=== PATIENT | female | born 1960 | race Caucasian/White ===

== ENCOUNTER 2019-11-17 17:01 | Outpatient (CLI) | payer OTHER, SELFPAY ==
--- NOTE | ~2019-11-17 | CT_ITS ---
EXAMINATION: CT abdomen pelvis wo con DATE: 11/17/2019 17:40 INDICATION: Diverticulitis TECHNIQUE: Computed tomography (CT) of the abdomen and pelvis was performed without intravenous contr ast. Automated exposure control and iterative reconstruction technique were employed. The dose-length product was 665.14 mGy-cm. COMPARISON: 11/08/2016 FINDINGS: Lung bases are clear. Heart size is normal. No pericardial or pleural effusion. Small sliding-type hi atal hernia. Diffuse hepatic steatosis. Cholecystectomy clips the gallbladder fossa. Spleen, pancreas , bilateral adrenal glands and kidneys are normal. Moderate scattered colonic diverticulosis without adjacent inflammatory change to suggest diverticulitis. Small bowel is normal. The appendix is not vi sualized. No pericecal inflammatory change to suggest acute appendicitis. Bladder is normal. The uter us is not identified and has likely been surgically resected. No free intraperitoneal gas or fluid. N o pathologically enlarged abdominal or pelvic lymphadenopathy. 6.4 x 5.6 x 2.5 cm fat-containing supr aumbilical ventral hernia which extends through a 6 x 11 mm orifice. Likely section scar ext ending transversely across the anterior pelvis. Mild lumbar levoscoliosis with severe spondylosis. Mi ld right-sided and mild to moderate left-sided hip osteoarthritis. IMPRESSION: 1. Moderate diverticulosis without adjacent inflammatory change to suggest diverticulitis. 2. Fat-containing ventral hernia. 3. Diffuse hepatic steatosis. Reviewed, dictated and finalized at location A. K PILER IMPRESSION: 1. Moderate diverticulosis without adjacent inflammatory change to suggest dive rticulitis. 2. Fat-containing ventral hernia. 3. Diffuse hepatic steatosis.
== END 2019-11-17 17:02 | disposition home or self-care (01) ==
PROVIDERS: PCP Family Medicine; Visit Provider Family Medicine
DX: K57.92 Diverticulitis of intestine, part unspecified, without perforation or abscess without bleeding (principal); K43.9 Ventral hernia without obstruction or gangrene; K76.0 Fatty (change of) liver, not elsewhere classified
CPT/HCPCS: 74176

== ENCOUNTER 2022-12-03 13:08 | Outpatient (CLI) | payer OTHER, SELFPAY ==
--- NOTE | ~2022-12-03 | CT_ITS ---
EXAMINATION: CT abdomen pelvis w con DATE: 12/03/2022 14:52 INDICATION: Periumbilical abdominal pain. Low abdominal adhesions. TECHNIQUE: Computed tomography (CT) of the abdomen and pelvis was performed with 100 mL Omnipaque 350 intravenous contrast. Automated exposure control and iterative reconstruction technique were employe d. The dose-length product was 549.41 mGy-cm. COMPARISON: CT abdomen and pelvis 02/15/2020 FINDINGS: The visualized portions of the lung bases demonstrate mild atelectasis. No pleural effusion . The heart size is normal. No pericardial effusion. There is a 4 mm cyst in the liver. There are aylin nges of cholecystectomy. The spleen, pancreas, adrenal glands, and kidneys are normal. There are scat tered diverticula in the colon. There is fat stranding around a sigmoid diverticulum with local bowel wall thickening, consistent with diverticulitis. The appendix is not visualized. There is a supraumb ilical ventral hernia containing fat. There are no pathologically enlarged lymph nodes. There is no f ree intraperitoneal fluid. There is lumbar levoscoliosis and severe spondylosis. IMPRESSION: 1. Sigmoid diverticulitis. No perforation or abscess. 2. Supraumbilical ventral hernia containing fat. Reviewed, dictated and finalized at location A.
[2022-12-03 14:46] LABS: Estimated Glomerular Filt Rate > 60
== END 2022-12-03 13:09 | disposition home or self-care (01) ==
PROVIDERS: PCP Family Medicine; Visit Provider Family Medicine
DX: K57.32 Diverticulitis of large intestine without perforation or abscess without bleeding (principal); K43.9 Ventral hernia without obstruction or gangrene; K57.90 Diverticulosis of intestine, part unspecified, without perforation or abscess without bleeding; K66.0 Peritoneal adhesions (postprocedural) (postinfection)
CPT/HCPCS: 74177; Q9967

== ENCOUNTER 2023-11-06 21:57 | Emergency (ER) | payer OTHER, SELFPAY ==
--- NOTE | ~2023-11-06 | XR_ITS ---
EXAMINATION: XR chest 2V DATE: 11/06/2023 22:18 INDICATION: Chest pain TECHNIQUE: PA and lateral views of the chest were obtained. COMPARISON: Chest radiograph dated 08/03/2018 FINDINGS: The lungs remain clear with no focal airspace opacities, pulmonary edema, pleural effusion or pneumot horax. The cardiomediastinal silhouette is normal. Instrumented lower cervical anterior spinal fusion . Moderate to severe thoracic spondylosis. Cholecystectomy clips in the right upper quadrant. IMPRESSION: 1. No acute cardiopulmonary disease. Reviewed, dictated and finalized at location A. VALVE MECH[employer]IC
--- NOTE | ~2023-11-06 | CT_ITS ---
Clinical Indication: Chest pain, back pain CT Scan of the Chest, Abdomen, and Pelvis with Contrast: Technique: Contiguous sections were acquired throughout the chest, abdomen, and pelvis after intraven ous administration of 100 cc of Omnipaque 350. Dose reduction technique was used on this scan by aguila burkett automated exposure control and iterative reconstruction technique. The dose-length product (DL P) was 720.02 mGy-cm. COMPARISON: 12/03/2022 Findings: There is no evidence of any significant mediastinal, hilar or axillary lymphadenopathy. The mediastin al soft tissues appear normal. No pulmonary embolus. No aortic aneurysm or dissection. There is no evidence of pleural or pericardial effusion. The lungs are clear. No pulmonary nodules or infiltrates are noted. Probable diffuse fatty infiltration of liver. Gallbladder absent. The spleen, pancreas, adrenals and kidneys are within normal limits. No evidence of aortic aneurysm. No lymphadenopathy. No bowel obstruction or bowel wall thickening. There is no evidence to suggest acute appendicitis. Sm all upper ventral fat-containing hernia present. Urinary bladder is unremarkable. No pelvic mass seen. No ascites. Impression: No acute abnormality. Diffuse fatty infiltration of liver. Small upper ventral fat-containing hernia. Reviewed, dictated and finalized at [facility]. [employer] Impression: No acute abnormality. Diffuse fatty infiltration of liver. Small upper ventral fat-containing hernia.
--- NOTE | 2023-11-06 21:59 | ECG_ITS ---
Measurements Intervals [place] Rate: 76 P: 55 MS: 156 QRS: 41 QRSD: 85 T: 43 QT: 369 QTc: 415 Interpretive Statements SINUS RHYTHM NO PREVIOUS ECG AVAILABLE FOR COMPARISON Electronically Signed On 11-07-2023 12:37:30 [employer] END [employer]PER by Kenneth An M.D.
[2023-11-06 22:07] VITALS: BP 186/92; PULSE 80; RESP 15; TEMP 37.1; O2SAT 100
[2023-11-06 22:10] VITALS: O2SAT 100
[2023-11-06] MEDS: ASPIRIN 81 MG CHEWABLE TABLET 324 MG PO (22:10)
[2023-11-06 22:11] VITALS: PULSE 78
[2023-11-06 22:16] LABS: Basophils Absolute Auto 0.1 K/mm3 (0.0-0.1); Basophils Percent Auto 0.6 % (0.2-1.2); Eosinophils Absolute Auto 0.2 K/mm3 (0-0.3); Hematocrit 41.8 % (37.0-47.0); Hemoglobin 13.8 g/dL (12.0-15.0); Immature Granulocyte Absolute 0.03 K/mm3 (0.00-0.031); Immature Granulocyte Percent A 0.3 % (0-0.5); Lymphocytes Absolute Auto 3.58 K/mm3 (0.9-3.2); Lymphocytes Percent Auto 36.7 % (18.3-44.2); Mean Corpuscular Hemoglobin 31.7 pg (26-34); Mean Corpuscular Volume 96.1 fl (80-100); Mean Platelet Volume 9.8 fl (7.4-10.4); Monocytes Absolute Auto 0.7 K/mm3 (0.1-0.6); Monocytes Percent Auto 7.4 % (2.6-8.5); Neutrophils Absolute Auto 5.2 K/mm3 (1.3-6.7); Platelet Count Result 369 k/mm3 (150-375); Red Blood Count 4.35 M/mm3 (4.2-5.4); Red Cell Distribution Width 12.1 % (11.5-14.5); White Blood Count 9.8 K/mm3 (4.5-10.0)
[2023-11-06 22:22] VITALS: BP 166/77; PULSE 73; RESP 18; O2SAT 100
[2023-11-06 22:26] LABS: INR 0.9; Partial Thromboplastin Time 25.8 SECONDS (22.3-36.8); Prothrombin Time 12.4 Seconds (11.1-14.7)
[2023-11-06 22:30] LABS: Alanine Aminotransferase 16 U/L (6-35); Albumin Level 4.4 g/dL (3.5-5.1); Alkaline Phosphatase 93 U/L (38-126); Anion Gap 9 mmol/L (8-16); Aspartate Amino Transferase 25 U/L (14-36); Bilirubin,Total 0.5 mg/dL (0.2-1.3); Blood Urea Nitrogen 15 mg/dL (7-17); Calcium 9.5 mg/dL (8.4-10.2); Carbon Dioxide 28 mmol/L (22-30); Chloride 102 mmol/L (98-107); Estimated CRCL calculation 65 ml/min; Estimated Glomerular Filt Rate > 60; Glucose 104 mg/dL (65-110); Lipase 208 U/L (23-300); Potassium 3.7 mmol/L (3.4-5.0); Sodium 139 mmol/L (137-145)
[2023-11-06 22:32] VITALS: BP 137/73; PULSE 76; RESP 16; O2SAT 99
[2023-11-06 22:41] LABS: Troponin I < 0.012 ng/mL (0.000-0.034)
--- NOTE | 2023-11-06 23:03 | ED.CHESTPAIN ---
HPI - Chest Pain General Chief Complaint: Chest Pain Stated Complaint: chest pain Time Seen by Provider: 11/06/23 22:22 Source: patient Limitations: no limitations History of Present Illness HPI narrative: Patient is a 63-year-old female presents to the emergency department complaining of chest pain. Patient states the pain started approximately 35 minutes prior to arrival in the emergency department, woke her from sleep, present in the center of her chest and so he feels in the posterior aspect of her chest and seems to be radiating out addition to her left shoulder blade region, states the pain is constant, describes it as a pressure, denies any she has pain in the past, has not noticed any making it better or worse including exertion, has not tried anything for the pain. Patient is to history of high blood pressure. Patient denies history of diabetes, smoking, cholesterol abnormalities. Patient admits to family history of early heart disease less than 65 years old. Patient admits to some mild nasal congestion over the past couple days. Patient denies shortness of breath. Patient denies nausea, vomiting, diarrhea, melena, hematochezia, urinary discomfort, recent injuries, recent illness, history of blood clots, unilateral lower extremity swelling, numbness, weakness, fever. Patient admits to a slight nonproductive cough. Related Data Home Medications Medication Instructions Recorded Confirmed pantoprazole 20 mg tablet,delayed 40 mg PO QAM 10/05/19 08/27/23 release Allergies Allergy/AdvReac Type Severity Reaction Status Date / Time cat dander Allergy Unknown Asthma Verified 11/06/23 22:11 Review of Systems Review of Systems: A 10 system review of systems was completed on the patient and is negative except for what is stated in the HPI. Nursing and ancillary documentation was reviewed. [facility] Past Medical History Medical History BPPV (benign paroxysmal positional vertigo) Diverticulosis IBS (irritable bowel syndrome) Lower abdominal adhesions Tubular adenoma of colon Ventral hernia Surgical History Surgical History H/O abdominoplasty H/O of rectopexy H/O ventral hernia repair History of lumbar discectomy Hx of cholecystectomy S/P cervical discectomy C5-6/C6-7 S/P left colectomy Family History Family History Mother Family history of liver disease Family history of malignant neoplasm of stomach Family history of primary malignant neoplasm of liver Sibling Family history of diabetes mellitus in first degree relative Diabetes mellitus Family history of cardiovascular disease Family history of malignant neoplasm of uterus Father Family history of heart disease in male family member before age 55 Acute myocardial infarction Diabetes mellitus Family history of cardiovascular disease Other Family history of allergic disorder Family history of thyroid disease Hypertension Social History Social History Smoking status: Never smoker Alcohol intake: current Lack of Transportation: No Lack of Food: Never True Current Housing: I Have Housing Concerned About Future Housing: No Difficulty Paying Gas/Electric Bills: No Difficulty Paying for Meds: No Currently Unemployed: No Education: Master's Degree or Higher Difficulty w/ Childcare or Family Care: No Comments At time of signature, I have reviewed and agree with nursing past medical, surgical, social and family history unless otherwise noted. Please see the nursing chart for further information. There is no relevant family history pertinent to the presenting complaint. Exam Narrative: CONST: No acute distress. Well nourished. HENMT: Head is normocephalic and atraumatic. Moist mucous membranes.
[2023-11-06] MEDS: ACETAMINOPHEN 500 MG TABLET 1000 MG PO (23:10)
[2023-11-06 23:23] LABS: D Dimer 0.67 ug/mL (<0.48)
[2023-11-06 23:47] VITALS: BP 133/77; PULSE 68; RESP 18; O2SAT 100
[2023-11-06 23:51] LABS: Influenza A QL RT-PCR Negative (Negative); Influenza B QL RT-PCR Negative (Negative); RSV RNA, RT-PCR Negative (Negative); SARS-CoV-2 RNA PCR Negative (Negative)
[2023-11-07] MEDS: MORPHINE SULFATE (*CRX) 4 MG/ML INJ IV PUSH (00:01)
[2023-11-07] MEDS: FAMOTIDINE 20 MG/2 ML VIAL IV PUSH (00:02)
[2023-11-07 00:08] VITALS: BP 148/75; PULSE 78; RESP 13; O2SAT 98
[2023-11-07 00:32] VITALS: BP 125/61; PULSE 63; RESP 12; O2SAT 97
[2023-11-07 01:33] LABS: Troponin I < 0.012 ng/mL (0.000-0.034)
[2023-11-07 03:27] VITALS: BP 121/86; PULSE 65; RESP 14; O2SAT 100
[2023-11-07 04:50] LABS: Troponin I < 0.012 ng/mL (0.000-0.034)
[2023-11-07 06:00] VITALS: BP 107/57; PULSE 62; RESP 14; O2SAT 99
== END 2023-11-07 06:03 | disposition home or self-care (01) ==
PROVIDERS: Emergency Provider Student in an Organized Health Care Education/Training Program; PCP Family Medicine
DX: R07.9 Chest pain, unspecified (principal); Z20.822 Contact with and (suspected) exposure to COVID-19
CPT/HCPCS: 36415; 71046; 71275; 74174; 80053; 83690; 84484; 85025; 85380; 85610; 85730; 87637; 93005; 96374; 96375; 99284; A9270; J2270; Q9967

== ENCOUNTER 2024-03-11 12:46 | Outpatient (CLI) | payer OTHER, SELFPAY ==
--- NOTE | ~2024-03-11 | MR_ITS ---
EXAMINATION: MR lumbar spine wo con DATE: 03/11/2024 13:25 INDICATION: Spinal stenosis, lumbar region with neurogenic claudication. TECHNIQUE: Magnetic resonance imaging (MRI) of the lumbar spine was performed without intravenous con trast. Sequences included sagittal T2-weighted FSE, sagittal T2-weighted FS FSE, sagittal T1-weighted FSE, and axial T2-weighted FSE. COMPARISON: Lumbar spine MRI 06/05/2008 FINDINGS: There is 18 degrees levoscoliosis of lumbar spine. There is 3 mm retrolisthesis of L2 on L3 and L3 on L4 and 4 mm retrolisthesis of L5 on S1. Vertebral body heights are normal. There is mildly decreased disc height at L1-L2 and severely decreased disc height from L2-L3 through L5-S1. The foll owing disc levels are specifically discussed: L1-L2: The disc is bulging and has an annular fissure. There is severe bilateral facet joint osteoart hritis. There is mild bilateral neural foraminal stenosis. There is mild central canal stenosis. L2-L3: The disc is bulging. There is severe bilateral facet joint osteoarthritis. There is moderate r ight and mild left neural foraminal stenosis. There is mild central canal stenosis. L3-L4: The disc is bulging and has an annular fissure. There is severe bilateral facet joint osteoart hritis. There is moderate right and mild left neural foraminal stenosis. There is mild central canal stenosis. L4-L5: The disc is bulging and has an annular fissure. There is severe bilateral facet joint osteoart hritis. There is moderate right and severe left neural foraminal stenosis. There is mild central ashley l stenosis. L5-S1: The disc is bulging and has an annular fissure. There is severe bilateral facet joint osteoart hritis. There is moderate bilateral neural foraminal stenosis. There is mild central canal stenosis. There is posterior decompression. IMPRESSION: 1. Severe lumbar spondylosis. 2. Lumbar levoscoliosis. Reviewed, dictated and finalized at location A.
== END 2024-03-11 12:47 ==
LOC: GOSHIMG 12:47
PROVIDERS: PCP Family Medicine; Visit Provider Nurse Practitioner Family
DX: M48.062 Spinal stenosis, lumbar region with neurogenic claudication (principal); M43.06 Spondylolysis, lumbar region; M41.86 Other forms of scoliosis, lumbar region
CPT/HCPCS: 72148

== ENCOUNTER 2024-04-22 08:45 | Outpatient (RCR) | payer OTHER, SELFPAY ==
--- NOTE | 2024-03-13 14:52 | OPREHPOC ---
Outpatient Therapy Plan of Care This is a Multidisciplinary Plan of Care that may contain components documented by all disciplines (PT, OT, and ST.) PT Problem 1 PT Problem #1 Knowledge Deficit PT Goal 1 Goal [place] with HEP Target Visit 4 PT Problem 2 PT Problem #2 Pain PT Goal 1 Goal Patient will report improved ability to sleep for 6+ hours without increased pain Target Visit 8 PT Problem 3 PT Problem #3 Impaired Flexibility PT Goal 1 Goal Demonstrate 40 degrees of kristin hip abduction to reduce abnormal pelvic pull and hip guarding Target Visit 8 PT Goal 2 Goal Demonstrate -15 degrees or better kristin hamstring restriction for reduced posterior chain pull with activity Target Visit 8 PT Goal 1 Goal Improve kristin hip abduction strength to 4+/5 to improve pelvic stability with ADLs Target Visit 8
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
--- NOTE | 2024-04-07 09:00 | OPREHPOC ---
Outpatient Therapy Plan of Care This is a Multidisciplinary Plan of Care that may contain components documented by all disciplines (PT, OT, and ST.) PT Problem 1 PT Problem #1 Knowledge Deficit PT Goal 1 Goal [place] with HEP Target Visit 4 Progress Met PT Problem 2 PT Problem #2 Pain PT Goal 1 Goal Patient will report improved ability to sleep for 6+ hours without increased pain Target Visit 13 Progress Partially Met PT Problem 3 PT Problem #3 Impaired Flexibility PT Goal 1 Goal Demonstrate 40 degrees of kristin hip abduction to reduce abnormal pelvic pull and hip guarding Target Visit 8 Progress Met PT Goal 2 Goal Demonstrate -15 degrees or better kristin hamstring restriction for reduced posterior chain pull with activity Target Visit 8 Progress Met PT Goal 1 Goal Improve kristin hip abduction strength to 4+/5 to improve pelvic stability with ADLs Target Visit 13 Progress Partially Met
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
--- NOTE | 2024-04-24 10:15 | PCPTNOTE ---
Patient called to cancel due to having too much going on.
--- NOTE | 2024-04-28 12:40 | PCPTNOTE ---
Patient called & cancelled scheduled appointment this date due to not feeling well.
--- NOTE | 2024-05-01 09:10 | PCPTNOTE ---
Patient did not show up for scheduled appointment this date.
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
== END 2024-05-05 09:21 | disposition home or self-care (01) ==
LOC: ANHGOSHPT 08:45
PROVIDERS: PCP Family Medicine; Visit Provider Family Medicine
DX: S86.912A Strain of unspecified muscle(s) and tendon(s) at lower leg level, left leg, initial encounter (principal); V89.2XXA Person injured in unspecified motor-vehicle accident, traffic, initial encounter
CPT/HCPCS: 97014; 97110; 97140; 97161; 97530; G0283

== ENCOUNTER 2024-05-25 11:55 | Emergency (ER) | payer OTHER, SELFPAY ==
[2024-05-25] VITALS (10 sets, daily range): BP systolic 118–158; BP diastolic 67–80; PULSE 54–87; RESP 13–20; TEMP 36.6; O2SAT 98–100
--- NOTE | ~2024-05-25 | XR_ITS ---
Clinical Indication: Dizziness PA and lateral views of the chest: Comparison: 11/06/2023 Findings: The lungs are clear, without evidence of focal consolidation or pleural effusion. Cardiome diastinal silhouette is within normal limits. Bones and soft tissues are unremarkable. Impression: Normal chest. Reviewed, dictated and finalized at location . Impression: Normal chest.
--- NOTE | ~2024-05-25 | CT_ITS ---
EXAMINATION: CT brain wo con DATE: 05/25/2024 14:31 INDICATION: Headache and dizziness TECHNIQUE: Computed tomography (CT) of the head was performed without intravenous contrast. Sagittal and coronal reconstructions were performed. The mA was adjusted according to patient size. Iterative reconstruction technique was employed. The dose-length product was 681.00 mGy-cm. COMPARISON: None FINDINGS: No acute intracranial hemorrhage, acute infarction or abnormal extra axial fluid collection. Symmetri c mild increased prominence of the sulci consistent with minimal age-appropriate diffuse cerebral vol ume loss. Ventricles are normal and symmetric. No mass/mass effect. The orbits, paranasal sinuses and mastoid air cells are normal. IMPRESSION: 1. Normal aging brain. No acute intracranial process. Reviewed, dictated and finalized at location A.
--- NOTE | 2024-05-25 12:10 | ECG_ITS ---
Test Date: 2024-05-25 12:16:48 Measurements Intervals [place] Rate: 67 P: 65 LA: 148 QRS: 28 QRSD: 88 T: 31 QT: 384 QTc: 405 Interpretive Statements SINUS RHYTHM EARLY PRECORDIAL R/S TRANSITION BASELINE ARTIFACT- I, II, III, AVR, AVL, AVF BORDERLINE ECG No previous ECG available for comparison Electronically Signed On 05-25-2024 17:45:03 CDT by Willard Xiong D.O.
[2024-05-25 12:40] LABS: Basophils Percent Auto 0.4 % (0.2-1.2); Eosinophils Absolute Auto 0.2 K/mm3 (0-0.3); Hematocrit 43.5 % (37.0-47.0); Hemoglobin 14.6 g/dL (12.0-15.0); Immature Granulocyte Absolute 0.03 K/mm3 (0.00-0.031); Immature Granulocyte Percent A 0.4 % (0-0.5); Lymphocytes Absolute Auto 2.58 K/mm3 (0.9-3.2); Lymphocytes Percent Auto 30.1 % (18.3-44.2); Mean Corpuscular HGB Conc 33.6 g/dl (32-36); Mean Corpuscular Volume 98.4 fl (80-100); Mean Platelet Volume 9.6 fl (7.4-10.4); Monocytes Absolute Auto 0.7 K/mm3 (0.1-0.6); Monocytes Percent Auto 8.3 % (2.6-8.5); Neutrophils Absolute Auto 5.1 K/mm3 (1.3-6.7); Neutrophils Percent Auto 58.8 % (45.5-73.1); Platelet Count Result 348 k/mm3 (150-375); Red Blood Count 4.42 M/mm3 (4.2-5.4); White Blood Count 8.6 K/mm3 (4.5-10.0)
[2024-05-25 12:51] LABS: Alanine Aminotransferase 19 U/L (6-35); Albumin Level 4.4 g/dL (3.5-5.1); Alkaline Phosphatase 72 U/L (38-126); Anion Gap 10 mmol/L (4-12); Aspartate Amino Transferase 21 U/L (14-36); Bilirubin,Total 0.7 mg/dL (0.2-1.3); Blood Urea Nitrogen 16 mg/dL (7-17); Calcium 9.1 mg/dL (8.4-10.2); Carbon Dioxide 27 mmol/L (22-30); Chloride 100 mmol/L (98-107); Estimated CRCL calculation 61 ml/min; Estimated Glomerular Filt Rate > 60; Glucose 107 mg/dL (65-110); Potassium 3.8 mmol/L (3.4-5.0); Sodium 137 mmol/L (137-145)
--- NOTE | 2024-05-25 13:37 | ED.DIZZY ---
HPI - Dizziness General Chief Complaint: Dizziness Stated Complaint: feels fogy tingling in the left arm and leg Time Seen by Provider: 05/25/24 13:18 Source: patient Mode of arrival: ambulatory Limitations: no limitations History of Present Illness HPI Narrative: This is a 63-year-old female who presents to the ED for chief complaint of dizziness and headaches for the past couple of days. Reports that she had an episode of dizziness at home where she felt very off balance walking through the [place] and ran into wall. States that she started out with some frontal headache a couple days ago but it seems inconsistent with her usual migraines. She denies any head injury or syncope. States that when she stands up symptoms get worse. Denies any feelings of room spinning. also endorses tingling to the scalp, left arm for the past couple of days. endorses nausea and several episodes of vomiting but no diarrhea. Denies recent illness, fevers, chills, chest pain, palpitations, abdominal pain, back pain. Related Data Home Medications Medication Instructions Recorded Confirmed ibuprofen 200 mg capsule 200 mg PO Q6H PRN 05/07/24 pantoprazole 40 mg tablet,delayed mg PO 05/07/24 release Allergies Allergy/AdvReac Type Severity Reaction Status Date / Time cat dander Allergy Unknown Asthma Verified 05/07/24 14:00 Review of Systems Review of Systems: All systems as dictated in HPI [facility] Past Medical History Medical History BPPV (benign paroxysmal positional vertigo) Diverticulosis IBS (irritable bowel syndrome) Lower abdominal adhesions Tubular adenoma of colon Ventral hernia Surgical History Surgical History H/O abdominoplasty H/O of rectopexy H/O ventral hernia repair History of lumbar discectomy Hx of cholecystectomy S/P cervical discectomy C5-6/C6-7 S/P left colectomy Family History Family History Mother Family history of liver disease Family history of malignant neoplasm of stomach Family history of primary malignant neoplasm of liver Sibling Family history of diabetes mellitus in first degree relative Diabetes mellitus Family history of cardiovascular disease Family history of malignant neoplasm of uterus Father Family history of heart disease in male family member before age 55 Acute myocardial infarction Diabetes mellitus Family history of cardiovascular disease Other Family history of allergic disorder Family history of thyroid disease Hypertension Social History Social History Smoking status: Never smoker Alcohol intake: current Lack of Transportation: No Lack of Food: Never True Current Housing: I Have Housing Concerned About Future Housing: No Difficulty Paying Gas/Electric Bills: No Difficulty Paying for Meds: No Currently Unemployed: No Education: Master's Degree or Higher Difficulty w/ Childcare or Family Care: No Exam Narrative: GENERAL: Well-appearing, well-nourished, and in no acute distress. HEAD: Normocephalic, atraumatic. EYES: PERRLA and EOMI. No photophobia ENT: Nares clear, no rhinorrhea or epistaxis. Mucous membranes moist. Oropharynx without tonsillar hypertrophy exudate or other lesions. NECK: Supple. No adenopathy or masses. CHEST: No respiratory distress. Clear to auscultation. No wheezes rales or rhonchi HEART: Regular rate and rhythm. No murmur heard. Normal peripheral pulses. ABDOMEN: Soft, nontender, nondistended, normal active bowel sounds. MSK: Normal range of motion. No edema. SKIN: Warm, dry, no rash. NEURO: Alert and oriented x4. No focal deficits. PSYCH: Normal mood and affect. Course Vital Signs Vital signs: Vital Signs Temperature 97.9 F 05/25/24 12:14 Pulse Rate
[2024-05-25 13:52] LABS: Bacteria Urine None Seen /hpf; Non Pathogenic Casts 0-2; RBC Urine 0-2 /hpf (0-2); Squamous Epithelial Cell Urine None Seen /hpf (Few); WBC Urine 0-5 /hpf (0-3)
[2024-05-25 13:57] LABS: Appearance Urine Clear (Clear); Blood Urine Negative (Negative); Color Urine Yellow (Yellow); Glucose Urine UA Negative (Negative); Ketones Urine Negative (Negative); Nitrate Urine Negative (Negative); Protein Urine Negative (Negative); Specific Grav Ur 1.005 (1.001-1.035)
[2024-05-25 13:58] LABS: Add Urine Microscopic? NO; Bilirubin Urine Negative (Negative); Leukocyte Esterase Ur Negative LEU/UL (Negative); Urobilinogen Urine 0.2 mg/dL (<2.0)
[2024-05-25] MEDS: PROCHLORPERAZINE EDISYLATE 10 MG/2 ML VIAL IV PUSH (14:20)
[2024-05-25] MEDS: diphenhydrAMINE HCl INJ 50 MG/ML VIAL 25 MG IV PUSH (14:20)
[2024-05-25] MEDS: SODIUM CHLORIDE 0.9% IV 1,000 ML 999 ML IV CONT (14:21)
[2024-05-25] MEDS: KETOROLAC 30 MG/ML VIAL (*BKC) IV PUSH (15:26)
== END 2024-05-25 15:43 | disposition home or self-care (01) ==
PROVIDERS: Emergency Provider Physician Assistant; PCP Family Medicine
DX: R42 Dizziness and giddiness (principal); G43.909 Migraine, unspecified, not intractable, without status migrainosus
CPT/HCPCS: 36415; 70450; 71046; 80053; 81003; 85025; 93005; 96361; 96374; 96375; 99284; J0780; J1200; J1885; J7030

== ENCOUNTER 2024-08-07 08:48 | Outpatient (CLI) | payer OTHER, SELFPAY ==
--- NOTE | ~2024-08-07 | MR_ITS ---
EXAMINATION: MR thoracic spine wo con DATE: 08/07/2024 09:41 INDICATION: Back pain. Contusion of frontal wall of thorax. TECHNIQUE: Magnetic resonance imaging (MRI) of the thoracic spine was performed without intravenous c ontrast. COMPARISON: Chest CT 11/07/2023 FINDINGS: There is 7 degrees dextrocurvature of thoracic spine. There are changes of anterior fusion procedure from C5 to C7 with interbody devices and anterior plate and screws. There is mild chronic a nterior wedging of T6-T8 vertebral bodies. There is decreased disc height at many levels, severe at T 6-T7, T8-T9, and T9-T10. There is multilevel severe facet joint osteoarthritis. There is mild neural foraminal stenosis at many levels on either side. On the left, there is moderate neural foraminal anuja nosis at T8-T9, T9-T10, and T10-T11. At T2-T3, the disc is bulging with mild central canal stenosis. At T6-T7, the disc is bulging with mild central canal stenosis. At T7-T8, there is a right central ex trusion with mild central canal stenosis. At T8-T9, the disc is bulging with mild central canal steno sis and ventral indentation of the spinal cord. At T9-T10, the disc is bulging with mild central ashley l stenosis. At T10-T11, there is a left central extrusion with mild central canal stenosis and ventra l indentation of the spinal cord. The spinal cord signal intensity is normal. The conus medullaris is at T12-L1. IMPRESSION: 1. Severe thoracic spondylosis. Reviewed, dictated and finalized at location A. TH PROGRAM DIRECTOR
--- NOTE | ~2024-08-07 | MR_ITS ---
EXAMINATION: MR cervical spine wo con DATE: 08/07/2024 09:38 INDICATION: Neck pain. Cervical stenosis. TECHNIQUE: Magnetic resonance imaging (MRI) of the cervical spine was performed without intravenous c ontrast. COMPARISON: None FINDINGS: There is 4 degrees levocurvature of cervical spine. There is 2 mm anterolisthesis of C4 on C5. Vertebral body heights are normal. There are changes of anterior fusion procedure from C5 to C7 w ith interbody devices and anterior plate and screws. There is moderately decreased disc height at C4- C5 and mildly decreased disc height at C7-T1. The spinal cord signal intensity is normal. The followi ng disc levels are specifically discussed: C2-C3: The disc does not extend beyond the endplate margin. There is no uncovertebral joint osteoarth ritis. There is mild bilateral facet joint osteoarthritis. There is no neural foraminal stenosis. The re is no central canal stenosis. C3-C4: There is a central protrusion. There is mild right uncovertebral joint osteoarthritis. There i s severe bilateral facet joint osteoarthritis. There is moderate right neural foraminal stenosis. The re is mild central canal stenosis. C4-C5: The disc is bulging. There is severe bilateral uncovertebral joint osteoarthritis. There is mi ld right and moderate left facet joint osteoarthritis. There is mild right and moderate left neural f oraminal stenosis. There is mild central canal stenosis with ventral indentation of the spinal cord. C5-C6: There is moderate bilateral uncovertebral joint hypertrophy. There is mild bilateral facet gregory nt osteoarthritis. There is mild bilateral neural foraminal stenosis. There is mild central canal anuja nosis. C6-C7: There is mild bilateral uncovertebral joint hypertrophy. There is mild bilateral facet joint h ypertrophy. There is mild left neural foraminal stenosis. There is mild central canal stenosis. C7-T1: The disc is bulging. There is mild right and moderate left uncovertebral joint osteoarthritis. There is severe bilateral facet joint osteoarthritis. There is moderate right and mild left neural f oraminal stenosis. There is mild central canal stenosis. IMPRESSION: 1. Moderate cervical spondylosis. 2. Anterior fusion procedure from C5 to C7. Reviewed, dictated and finalized at location A. ETRICIAN AND GYNAECOLOGIST
== END 2024-08-07 08:49 | disposition home or self-care (01) ==
PROVIDERS: PCP Family Medicine
DX: S20.219A Contusion of unspecified front wall of thorax, initial encounter (principal); V89.2XXA Person injured in unspecified motor-vehicle accident, traffic, initial encounter; M47.812 Spondylosis without myelopathy or radiculopathy, cervical region; Z98.1 Arthrodesis status; M54.14 Radiculopathy, thoracic region
CPT/HCPCS: 72141; 72146

== ENCOUNTER 2024-10-04 18:39 | Emergency (ER) | payer OTHER, SELFPAY ==
--- NOTE | ~2024-10-04 | XR_ITS ---
CHEST RADIOGRAPH CLINICAL HISTORY: palpitation AND JAW DISCOMFORT STARTED APPROX . COMPARISON: 05/25/2024 TECHNIQUE: Single portable view of the chest. FINDINGS The cardiomediastinal silhouette is unremarkable. The lungs are clear. Fixation hardware within the lower cervical spine IMPRESSION: No focal infiltrate or effusion. Reviewed, dictated and finalized at location A. RAL ARTS DEAN
[2024-10-04 18:40] VITALS: BP 100/85; PULSE 83; RESP 16; TEMP 36.9; O2SAT 100
--- NOTE | 2024-10-04 19:09 | ECG_ITS ---
Test Date: 2024-10-04 19:23:54 Measurements Intervals [place] Rate: 77 P: 68 UT: 150 QRS: 16 QRSD: 94 T: 16 QT: 391 QTc: 443 Interpretive Statements SINUS RHYTHM Compared to ECG 05/25/2024 12:16:48 No significant changes Electronically Signed On 10-05-2024 21:55:11 [address] BAILIFF OR SHERIFF by Odilia Jennings M.D.
[2024-10-04 19:41] VITALS: BP 143/79; PULSE 76; PULSE 79; RESP 15; O2SAT 98
--- NOTE | 2024-10-04 19:47 | ED.ARRPALP ---
HPI - Arrhythmia/Palpitations General Chief Complaint: Arrhythmia/Palpitations Stated Complaint: palpations, htn Time Seen by Provider: 10/04/24 19:04 History of Present Illness HPI narrative: Patient is a 64-year-old female who presents emergency department this evening complaining of heart palpitations which started around noon. Patient states that her watch notified her that she was in a bigeminy/trigeminy rhythm. Admits that her heart rate did not exceed over 100. Admits to history of hypertension and did note that today her blood pressure did go up to 200 systolic while she was having these palpitations. Since then her blood pressure has normalized. Patient does take metoprolol for her hypertension. Denies any history of coronary artery disease, any tobacco use and any history of hyperlipidemia. Patient states she had some mild chest pressure but no sharp stabbing chest pain. Patient states that these episodes of the bigeminy/trigeminy were intermittent for approximate 90 minutes before resolving. She is currently denying any symptoms at this time including any chest pain, palpitations, shortness of breath, nausea, vomiting, lightheadedness, dizziness, vision changes. Patient states that initially her watch did show that she was on a normal sinus rhythm but then started to read is possible AFib which is what prompted her to get checked out. Denies any history of atrial fibrillation and denies any blood thinner use. Admits that her and her both are getting over a recent URI/influenza. No additional symptoms or concerns at this time. Related Data Home Medications ?Medication ?Instructions ?Recorded ?Confirmed ?Last Taken ?Type ibuprofen 200 mg capsule 200 mg PO Q6H PRN 05/07/24 07/27/24 Unknown History pantoprazole 40 mg tablet,delayed mg PO 05/07/24 07/27/24 Unknown History release Allergies Allergy/AdvReac Type Severity Reaction Status Date / Time cat dander Allergy Unknown Asthma Verified 10/04/24 18:52 Review of Systems Review of Systems: All systems are reviewed and are negative unless stated otherwise in the HPI. FOR[facility], LAT[facility] Past Medical History Medical History BPPV (benign paroxysmal positional vertigo) Diverticulosis IBS (irritable bowel syndrome) Lower abdominal adhesions Tubular adenoma of colon Ventral hernia Surgical History Surgical History H/O abdominoplasty H/O of rectopexy H/O ventral hernia repair History of lumbar discectomy Hx of cholecystectomy S/P cervical discectomy C5-6/C6-7 S/P left colectomy Family History Family History Mother Family history of liver disease Family history of malignant neoplasm of stomach Family history of primary malignant neoplasm of liver Sibling Family history of diabetes mellitus in first degree relative Diabetes mellitus Family history of cardiovascular disease Family history of malignant neoplasm of uterus Father Family history of heart disease in male family member before age 55 Acute myocardial infarction Diabetes mellitus Family history of cardiovascular disease Other Family history of allergic disorder Family history of thyroid disease Hypertension Social History Social History Smoking status: Never smoker Alcohol intake: current Lack of Transportation: No Lack of Food: Never True Current Housing: I Have Housing Concerned About Future Housing: No Difficulty Paying Gas/Electric Bills: No Difficulty Paying for Meds: No Currently Unemployed: No Education: Master's Degree or Higher Difficulty w/ Childcare or Family Care: No Exam Narrative: General: Alert, awake, afebrile, in no acute distress. HEENT: PERRL, no rhinorrhea, no post nasal drip, oropharynx clear. Neck: Trachea midline, no JVD, no lymphadenopathy. Cardiovascular: Regular rate and rhythm, no murmurs, rubs or gallops, no peripheral edema. Respiratory: Clear to auscultation bilaterally, no tachypnea, no wheezing, no rhonchi, no rubs, no respiratory distress. Abdomen: Soft, nontender, nondistended, no rebound, no guarding, no peritoneal signs. Musculoskeletal: No joint swelling or deformity, normal muscle tone. Skin: No rashes or petechia, no signs of infection. Psychiatric: Alert and oriented, normal behavior and judgment for situation. Neurological: Alert and oriented to person, place, and time. Follows all commands. No focal deficits, speech is clear and fluent. Course Vital Signs Vital signs: Vital Signs Temperature 98.5 F 10/04/24 18:40 Pulse Rate 83 10/04/24 18:40 Respiratory Rate 16 10/04/24 18:40 Blood Pressure 100/85 10/04/24 18:40 Pulse Oximetry 100 10/04/24 18:40 Oxygen Delivery Room Air 10/04/24 18:40 Temperature 98.5 F 10/04/24 18:40 Pulse Rate 79 10/04/24 19:41 Respiratory Rate 15 10/04/24 19:41 Blood Pressure 143/79 H 10/04/24 19:41 Pulse Oximetry 98 10/04/24 19:41 Oxygen Delivery Room Air 10/04/24 19:10 MDM - Arrhythmia/Palpitations MDM Narrative Medical decision making narrative: The patient was evaluated by myself in the emergency department. History is obtained from patient who is an independent historian and physical exam was performed. External medical records were reviewed at this time. IV was established and pertinent tests were ordered. EKG was obtained which revealed sinus rhythm rate of 77 beats per minute. No ST changes, T wave inversions or evidence of acute ischemia. EKG was independently interpreted by me and is currently pending official cardiology read. Laboratory results obtained revealing no acute process. Imaging studies obtained included CXR which was independently interpreted by me revealing no acute cardiopulmonary process, which is pending final radiology interpretation. Differential diagnosis considerations include acute stress reaction, dehydration, electrolyte derangements, arrhythmia, acute coronary syndrome although unlikely given patient's low heart score of 2. Comorbidities impacting this visit include none. I have evaluated and discussed social determinants of health with the patient that could potentially impact subsequent diagnosis and treatment plans. On repeat assessment of the patient, reevaluation revealed that the patient is doing well and is in no acute distress. Patient symptoms have improved since she arrived to our emergency department. Repeat vital signs were all reviewed and noted to be stable. Differential diagnosis and treatment plan were discussed with the patient at bedside. Patient agrees with discussion and after shared medical decision making agrees with discharge. All questions were answered to the patient's satisfaction. Patient will follow up with her senior analysis specialist in 3-5 days. Patient was provided with strict return precautions and instructed to return to the emergency department if any new or worsening symptoms develop. The patient was discharged in stable condition. Lab Data 10/04/24 19:45 10/04/24 19:45 Labs: Lab Results 10/04/24 Range/Units 19:45 WBC 7.8 (4.5-10.0) K/mm3 RBC 4.02 L (4.2-5.4) M/mm3 Hgb 12.8 (12.0-15.0) g/dL Hct 38.6 (37.0-47.0) % MCV 96.0 (80-100) fl MCH 31.8 (26-34) pg MCHC 33.2 (32-36) g/dl RDW 12.0 (11.5-14.5) % Plt Count 368 (150-375) k/mm3 MPV 9.4 (7.4-10.4) fl Immature Gran % (Auto) 0.4 (0-0.5) % Neut % (Auto) 57.0 (45.5-73.1) % Lymph % (Auto) 32.8 (18.3-44.2) % Sac % (Auto) 7.3 (2.6-8.5) % Eos % (Auto) 1.9 (0-4.4) % Baso % (Auto) 0.6 (0.2-1.2) % Lymph # (Auto) 2.56 (0.9-3.2) K/mm3 Sac # (Auto) 0.6 (0.1-0.6) K/mm3 Eos # (Auto) 0.2 (0-0.3) K/mm3 Baso # (Auto) 0.1 (0.0-0.1) K/mm3 Abs Immat Gran (auto) 0.03 (0.00-0.031) K/mm3 Absolute Neuts (auto) 4.4 (1.3-6.7) K/mm3 Absolute Nucleated RBC 0.000 (0.0-0.012) K/mm3 Nucleated RBC % 0.0 (0.0-0.2) % Sodium 138 (137-145) mmol/L Potassium 4.2 (3.4-5.0) mmol/L Chloride 104 (98-107) mmol/L Carbon Dioxide 31 H (22-30) mmol/L Anion Gap 3 L (4-12) mmol/L BUN 17 (7-17) mg/dL Creatinine 0.87 (0.7-1.0) mg/dL Estim Creat Clear Calc 49 ml/min Estimated GFR > 60 (59 - ) Glucose 101 (65-110) mg/dL Calcium 9.1 (8.4-10.2) mg/dL Magnesium 1.9 (1.6-2.3) mg/dL Total Bilirubin 0.4 (0.2-1.3) mg/dL AST 19 (14-36) U/L ALT 15 (6-35) U/L Alkaline Phosphatase 87 (38-126) U/L Troponin I < 0.012 (0.000-0.034) ng/mL Total Protein 7.0 (6.3-8.2) g/dL Albumin 4.1 (3.5-5.1) g/dL Lipase 90 (23-300) U/L Discharge Plan Discharge Clinical Impression: Heart palpitations Patient Disposition: Home, Self-Care Condition: Improved Instructions: Antibiotic Form, Heart Palpitations (DC) Additional Instructions: Please follow-up with your senior analysis specialist as instructed within the next 3-5 days as you may need to wear a Holter monitor for further evaluation for any arrhythmia/heavy PVC burden. Return to the emergency department if any new or worsening symptoms develop. Patient Language: Kosovan Prescriptions: No Action cyclobenzaprine 10 mg tablet 10 mg PO TID PRN (Reason: muscle spasm) Qty: 60 1RF pantoprazole 40 mg tablet,delayed release (DR/EC) PO ibuprofen 200 mg capsule 200 mg PO Q6H PRN acetaminophen 500 mg tablet 500 mg PO Q6H PRN (Reason: pain) Qty: 30 0RF metoprolol succinate 25 mg tablet extended release 24 hr 25 mg PO DAILY Qty: 90 1RF Qulipta 60 mg tablet 60 mg PO DAILY Qty: 90 0RF oseltamivir [Tamiflu] 75 mg capsule 75 mg PO BID Qty: 10 0RF Follow-up/Referrals: Steve Arceo MD [Primary Care Provider] - 3 Days Time of Disposition: 20:42
[2024-10-04 19:50] LABS: Basophils Absolute Auto 0.1 K/mm3 (0.0-0.1); Basophils Percent Auto 0.6 % (0.2-1.2); Eosinophils Absolute Auto 0.2 K/mm3 (0-0.3); Eosinophils Percent Auto 1.9 % (0-4.4); Hematocrit 38.6 % (37.0-47.0); Hemoglobin 12.8 g/dL (12.0-15.0); Immature Granulocyte Absolute 0.03 K/mm3 (0.00-0.031); Immature Granulocyte Percent A 0.4 % (0-0.5); Lymphocytes Absolute Auto 2.56 K/mm3 (0.9-3.2); Lymphocytes Percent Auto 32.8 % (18.3-44.2); Mean Corpuscular HGB Conc 33.2 g/dl (32-36); Mean Corpuscular Hemoglobin 31.8 pg (26-34); Mean Platelet Volume 9.4 fl (7.4-10.4); Monocytes Absolute Auto 0.6 K/mm3 (0.1-0.6); Monocytes Percent Auto 7.3 % (2.6-8.5); Neutrophils Absolute Auto 4.4 K/mm3 (1.3-6.7); Platelet Count Result 368 k/mm3 (150-375); Red Blood Count 4.02 M/mm3 (4.2-5.4); White Blood Count 7.8 K/mm3 (4.5-10.0)
[2024-10-04 20:07] LABS: Alanine Aminotransferase 15 U/L (6-35); Albumin Level 4.1 g/dL (3.5-5.1); Alkaline Phosphatase 87 U/L (38-126); Anion Gap 3 mmol/L (4-12); Aspartate Amino Transferase 19 U/L (14-36); Bilirubin,Total 0.4 mg/dL (0.2-1.3); Blood Urea Nitrogen 17 mg/dL (7-17); Calcium 9.1 mg/dL (8.4-10.2); Carbon Dioxide 31 mmol/L (22-30); Chloride 104 mmol/L (98-107); Estimated CRCL calculation 49 ml/min; Estimated Glomerular Filt Rate > 60; Glucose 101 mg/dL (65-110); Lipase 90 U/L (23-300); Magnesium 1.9 mg/dL (1.6-2.3); Potassium 4.2 mmol/L (3.4-5.0); Sodium 138 mmol/L (137-145)
[2024-10-04 20:18] LABS: Troponin I < 0.012 ng/mL (0.000-0.034)
== END 2024-10-04 20:54 | disposition home or self-care (01) ==
PROVIDERS: Emergency Provider Emergency Medicine; PCP Family Medicine
DX: R00.2 Palpitations (principal); I10 Essential (primary) hypertension; K58.9 Irritable bowel syndrome, unspecified; Z90.49 Acquired absence of other specified parts of digestive tract
CPT/HCPCS: 36415; 71045; 80053; 83690; 83735; 84484; 85025; 93005; 99284

== ENCOUNTER 2024-10-14 14:13 | Outpatient (CLI) | payer OTHER, SELFPAY ==
--- NOTE | ~2024-10-14 | CT_ITS ---
EXAMINATION: CTA brain carotid DATE: 10/14/2024 14:50 INDICATION: Amaurosis fugax. TECHNIQUE: Computed tomographic angiography (CTA) of the head was performed without and with 100 mL O mnipaque-350 intravenous contrast. CTA of the neck was performed with intravenous contrast. Automated exposure control and iterative reconstruction technique were employed. The dose-length product was 1 550.60 mGy-cm. Maximum intensity projection and volume rendered 3D-reconstructions were created by piero madsen technologist on a separate workstation. COMPARISON: Head CT 05/25/24 FINDINGS: HEAD CTA: There is no intracranial hemorrhage, acute infarction, or abnormal intracranial mass lesion . The ventricles are normal in size. The orbits are normal. The paranasal sinuses are clear. The mast oid air cells are normal. The vertebral arteries are codominant. There is a significant stenosis of b asilar artery or the posterior cerebral arteries. There is no significant stenosis of the intracrania l internal carotid arteries or anterior or middle cerebral arteries. Anterior communicating artery is normal. The posterior communicating arteries are normal. There is no aneurysm. NECK CTA: There are no pathologically enlarged lymph nodes. There is no significant stenosis of the v ertebral arteries. There is plaque in the proximal internal carotid arteries. There is 0% stenosis o f the proximal right internal carotid artery relative to normal distal artery lumen diameter (NASCET criteria). There is 0% stenosis of the proximal left internal carotid artery relative to normal dista l artery lumen diameter. There is severe cervical spondylosis. There are changes of anterior fusion p rocedure from C5 to C7 with interbody devices and anterior plate and screws. IMPRESSION: 1. Normal brain. No aneurysm or significant intracranial arterial stenosis 2. 0% stenosis of the proximal internal carotid arteries relative to normal distal artery lumen diame ters (NASCET criteria). Reviewed, dictated and finalized at location B. ESSOR OF PHILOSOPHY IMPRESSION: 1. Normal brain. No aneurysm or significant intracranial arterial stenosis 2. 0% stenosis of the proximal internal carotid arteries relative to normal dis obey artery lumen diameters (NASCET criteria).
--- OUTSIDE RECORDS SUMMARY | 2024-10-16 01:50 | XMS_ITS | Clinical Summary ---
Author Organization [facility]anc[facility] Address [address] [place] [address] Care Team Providers Care Sales Agent Pest Control Service Name Role Phone Unavailable Primary Care Provider Unavailabl e Social History Tobacco Use Types Packs/Day Years Used Date Smoking Tobacco: Never Assessed Comments Unknown Sex and Gender Information Value Date Recorded Sex Assigned at Not on file Legal Sex Female 10:32 AM CDT Gender Identity Not on file Sexual Orientation Not on file Plan of Treatment Health Maintenance Due Date Last Done Comments DTAP/TDAP/TD VACCINES (1 - Tdap) 1979 CERVICAL CANCER SCREENING 1990 BREAST CANCER SCREENING 2000 COLORECTAL SCREENING 2005 Colorectal Cancer Screening 2005 FIT-DNA Q 3 years 2005 FIT/FOBT Q 1 year 2005 Flex Sig/CT Colonography Q 5 years 2005 ZOSTER VACCINE (1 of 2) 2010 INFLUENZA VACCINE (#1) 2024 RSV VACCINE (60+ or ) (1 - 1-dose 75+ series) 2035
--- OUTSIDE RECORDS SUMMARY | 2024-10-16 01:52 | XMS_ITS | Clinical Summary ---
Author Organization [facility] Address [address] [place] [address] Care Team Providers Care Forensic Chemist Name Role Phone Steve Arceo MD Primary Care Provider [phone] John Saenz MD Unavailable [phone] Allie Urban MD Unavailable [phone] Glenna Clemens MD Unavailable [phone] Allergies Active Allergy Reactions Criticality Noted Date Comments Cat Dander Hives,Shortness of breath,Itching,Cough High 04/23/2016 Medications ibuprofen (ADVIL,MOTRIN) 600 mg tabletIndicatio ns:Pain Take 1 tablet (600 mg total) by mouth every 8 (eight) hours 30 tablet 3 Active acetaminophen 500 mg capsuleIndicati ons:Pain Take 2 capsules (1,000 mg total) by mouth every 6 (six) hours 30 tablet [address] (PROTONIX) 40 mg EC tabletIndicatio ns:Stress Ulcer Prophylaxis Take 1 tablet (40 mg total) by mouth 2 (two) times a day before breakfast and dinner 60 tablet 11 4 11/20/19 25 Active metoprolol XL (TOPROL-XL) 25 mg extended release tablet Take 1 tablet (25 mg total) by mouth daily 4 Active cyclobenzaprine (FLEXERIL) 10 mg tablet Take 1 tablet (10 mg total) by mouth 3 (three) times a day as needed for muscle spasms Active aspirin 81 mg enteric coated tablet Take 1 tablet (81 mg total) by mouth daily Active metoprolol espinosa-hydrochlorot hiaz 25-12.5 mg tablet extended release 24 hr 9 10/15/19 25 Discontinu ed(Therapy completed) mupirocin (BACTROBAN) 2 % ointment Apply to nares BID starting 5 days prior to surgery ending the day prior 22 g 4 10/15/19 25 Discontinu ed(Therapy completed) Active Problems Problem Noted Date Diagnosed Date Chronic bilateral low back pain 07/31/2024 Herniated nucleus pulposus, L4-5 06/05/2024 Status post gastrointestinal surgery 05/21/2023 Vestibular migraine 06/12/2021 Vertigo 06/12/2021 Cervical myelopathy 03/23/2021 Overview (03/23/2021): Added automatically from request for surgery [id number] Abnormal finding on GI tract imaging 12/01/2020 Overview (12/01/2020): Added automatically from request for surgery [id number] Diverticulitis 05/26/2020 Overview (05/26/2020): Added automatically from request for surgery [id number] 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 Significant photophobia, out of proportion to findings on exam. AC quiet. Start maxitrol, 1gtt, OD, qid. D/c CL wear for now. F/u in 1 [address] [facility] [address] Carlos. Recommended pt be refit in more breathable lens by primary eye care provider after resolution of symptoms. Abrasion of left cornea 01/05/2019 Assessment & Plan (01/13/2019 8:25 AM CDT): No staining. Small epi haze/scar remaining. Pt ed to stop Ofloxacin. Ok to resume contact lens (CL) wear. Assessment & Plan (01/05/2019 10:43 AM CDT): Corneal abrasion OS in setting of contact lens use -no infiltrate or sign of infection -1+ AC reaction, possibly traumatic iritis (will treat as such) -prednisolone QID OS -ofloxacin QID OS -cyclopentolate BID OS RTC w/optom/JUAN in 1 week, sooner if problems. Iritis 01/05/2019 Assessment & Plan (01/13/2019 8:25 AM CDT): Resolved. Ok to stop pred forte (PF) and cyclo. RTC PRN Spondylosis of cervical hiral on without myelopathy or radiculopathy 11/24/2018 Gastroesophageal reflux disease 04/08/2018 Overview (04/08/2018): Added automatically from request for surgery [id number] Inflammation of stomach present on endoscopy Overview (04/08/2018): Added automatically from request for surgery [id number] Change in bowel habits 01/15/2018 Dysphagia 01/15/2018 Sensorineural hearing loss (SNHL) of both ears 0 11/22/2017 Assessment & Plan (11/22/2017 7:29 PM CHANGE CONSULTANT): Has associated tinnitus. No hearing aids. Negative MRI 07/10/2015 Cervical spinal stenosis 11/22/2017 Assessment & Plan (11/22/2017 7:50 PM CHANGE CONSULTANT): C5-6 level. Neurosurgery ( Dr. Reis) texted. Dilaudid, Ativan, Reglan, Zofran Continues symptomatic relief. No signs of weakness on physical exam. Dr. Reis has responded and will see the patient in the morning. Photophobia of both eyes 11/22/2017 Assessment & Plan (11/22/2017 7:50 PM CHANGE CONSULTANT): Minimize light in her room. She does not usually have migraine headaches. Diverticulitis of colon 12/19/2016 Subjective tinnitus 06/20/2015 Fecal incontinence 12/21/2013 Incontinence 12/21/2013 Myofascial pain 12/21/2013 Angioma 11/04/2013 Seborrheic keratoses 11/04/2013 Low back pain 03/05/2013 Ganglion of joint 11/23/2011 Arthralgia of wrist 11/22/2011 Knee pain 02/01/2011 Acute neck pain Nausea Encounters Date Type Department Care Team Description 10/15/2024 3:50 PM CHANGE CONSULTANT Lab [facility] [address] [place] [address] Primary hypertension 10/15/2024 3:15 PM CHANGE CONSULTANT Ancillary Procedure [facility] [address] [place] [address] [address] [place] [phone] Palpitations 10/15/2024 2:30 PM CHANGE CONSULTANT Office Visit [facility] Cardiology [address] [place] [address] Medical Office Building 3 [address] [place] [address] Carlo Alexander MD Palpitations (Primary Dx); Primary hypertension; Hyperlipidemia, unspecified hyperlipidemia type; Amaurosis fugax of right eye 10/15/2024 8:42 AM CHANGE CONSULTANT - 10/15/2024 11:59 PM CHANGE CONSULTANT Hospital Encounter [facility] [address] [place] [address] Ancelmo Milligan MD Cervical spinal stenosis Discharge Disposition: Discharge to home or self care 10/15/2024 7:08 AM CHANGE CONSULTANT - 10/15/2024 11:59 PM CHANGE CONSULTANT Hospital Encounter [facility] Radiology [address] [place] [address] Left leg weakness; Cervical spinal stenosis; Lumbar stenosis with neurogenic claudication; Levoscoliosis of lumbar spine Discharge Disposition: Discharge to home or self care 10/07/2024 Orders Only [facility] Health Information Management [address] [place] [address] Scanning, Provider 10/07/2024 Telephone [facility] Ophthalmology [address] [place] [address] [place] [phone] Kraig aHddad MD 10/05/2024 Telephone [facility] Cardiology [address] [facility] 8th [place] [address] [place] [address] Galloway Eileen 10/04/2024 6:45 PM CHANGE CONSULTANT Office Visit [facility] at [address] [address] Americo Martinez NP Irregular heart beat (Primary Dx) 10/04/2024 Orders Only [facility] CARDIOLOGY Scanning, Provider 09/09/2024 8:20 AM CHANGE CONSULTANT Procedure visit [facility] Neurological Testing [address] [facility] 6th [place] [address] [place] [phone] Fasciculation of lower extremity 09/03/2024 1:40 PM CHANGE CONSULTANT Telemedicine [facility] Neurosurgery [address] [facility] Medical Office Building [address] [place] [phone] Mu Clinton PA Left leg weakness (Primary Dx); Cervical spinal stenosis; Lumbar stenosis with neurogenic claudication; Levoscoliosis of lumbar spine 09/03/2024 Orders Only [facility] Neurosurgery [address] [place] [address] [facility] 6th [place] [address] [place] [phone] Ancelmo Milligan MD Cervical spinal stenosis (Primary Dx) 08/24/2024 Orders Only [facility] Neurosurgery [address] [place] [address] 6th [place] [address] [place] [phone] Ancelmo Milligan MD 08/19/2024 8:40 AM CHANGE CONSULTANT Office Visit [facility] Neurosurgery [address] [facility] Medical Office Building [address] [place] [phone] Mu Clinton PA Left leg weakness (Primary Dx); Cervical spinal stenosis; Lumbar stenosis with neurogenic claudication; Levoscoliosis of lumbar spine 08/19/2024 Telephone [facility] Neurosurgery [address] [place] [address] Medical Office Building [address] [place] [phone] Ancelmo Milligan MD 08/18/2024 6:52 PM CHANGE CONSULTANT - 08/18/2024 11:59 PM CHANGE CONSULTANT Hospital Encounter [facility] ([facility]) [address] [place] [address] Discharge Disposition: Discharge to home or self care 08/18/2024 6:51 PM CHANGE CONSULTANT - 08/18/2024 11:59 PM CHANGE CONSULTANT Hospital Encounter [facility] [address] [place] [address] Discharge Disposition: Discharge to home or self care 08/12/2024 Telephone [facility] Neurosurgery [address] [place] [address] Medical Office Building 4 [address] [place] [phone] Ulises Delgadillo NP 08/05/2024 1:45 PM CHANGE CONSULTANT - 08/05/2024 11:59 PM CHANGE CONSULTANT Hospital Encounter [facility] [address] [phone] Glenna Clemens MD Lumbar radiculopathy Discharge Disposition: Discharge to home or self care 07/31/2024 8:00 AM CHANGE CONSULTANT - 07/31/2024 11:59 PM CHANGE CONSULTANT Hospital Encounter [facility] [address] [phone] Glenna Clemens MD Herniated nucleus pulposus, L4-5 (Primary Dx); Lumbar radiculopathy; Chronic bilateral low back pain, unspecified whether sciatica present; Fasciculation of lower extremity; Vertebrogenic pain Discharge Disposition: Discharge to home or self care 07/29/2024 11:15 AM CHANGE CONSULTANT Office Visit [facility] Neurosurgery [address] [place] [address] Medical Office Building [address] [place] [phone] Ancelmo Milligan MD Lumbar stenosis with neurogenic claudication (Primary Dx) 07/29/2024 11:12 AM CHANGE CONSULTANT - 07/29/2024 11:59 PM CHANGE CONSULTANT Hospital Encounter [facility] Radiology [address] [place] [address] [address] [place] [phone] Lumbar stenosis with neurogenic claudication Discharge Disposition: Discharge to home or self care 07/29/2024 Telephone [facility] [address] [place] [address] Ani Winston RN Pre Arrival 07/29/2024 Telephone [facility] Neurosurgery [address] [facility] Office Building [address] [place] [address] Ancelmo Milligan MD 07/27/2024 Orders Only [facility] Neurosurgery [address] [place] [address] Office Building [address] [place] [address] Ancelmo Milligan MD Lumbar stenosis with neurogenic claudication (Primary Dx) 07/21/2024 Telephone [facility] [place] at [address] [phone] Glenna Clemens MD pt call 07/20/2024 Telephone [facility] at [address] [address] Glenna Clemens MD Peer to Peer Requested 07/16/2024 Telephone [facility] at [address] [phone] Glenna Clemens MD Scheduling Appointments from Last 3 Months Immunizations Name Administration Dates Next Due Influenza, Trivalent, IM (MDV) 06/23/2017 Influenza, Unspecified 06/23/2020 Pfizer SARS-CoV-2 Monovalent Vaccination (12+ Yrs) PURPLE 11/07/2020,10/18/2020 ZOSTER LIVE 06/23/2015 Surgical History Surgery Date Site/Laterality Comments EPIDURAL INJECTION LUMBOSACRAL 04/09/2013 N/A APPENDECTOMY HYSTERECTOMY LAPAROSCOPIC CHOLECYSTECTOMY SECTION DILATION AND CURETTAGE, DIAGNOSTIC / THERAPEUTIC KNEE CARTILAGE SURGERY 04/23/2017 - 05/23/2017 Right MICRODISCECTOMY LUMBAR ESOPHAGOSCOPY / EGD 04/02/2018 Esophagitis ABDOMINOPLASTY 09/23/1993 - 09/22/1994 ANTERIOR CERVICAL DISCECTOMY W/ FUSION 09/23/2020 - 09/22/2021 LAPAROSCOPIC LEFT COLON RESECTION 04/12/2023 Laparoscopic-assisted left colectomy. Rectal mobilization and suture rectopexy. Repair of ventral hernia Medical History Medical History Date Comments PVC's (premature ventricular contractions) Seasonal allergies Diverticulitis recurrent Abdominal pain Asthma Cervical disc disease Cervical stenosis (uterine cervix) Depression Gastric reflux Lumbar stenosis Neuropathy (CMS/HCC) Hypertension PONV (postoperative nausea and vomiting) Nausea only Family History Medical History Relation Name Comments Cancer Brother 1 Diabetes Brother 1 Hypertension Brother 1 Heart attack Father Heart disease Father Cancer Maternal Grandmother Diabetes Maternal Grandmother Cancer Mother Cancer Sister 1 Diabetes Sister 1 Heart disease Sister 1 Hypertension Sister 1 Anesthesia problems Neg Hx Relation Name Status Comments Brother 1 Alive Colon cancer Brother 2 Alive Parotid cancer Father (Age 64) [place], HTN Maternal Grandmother Mother (Age 57) Liver canc er Sister 1 Alive HOCM Sister 2 Alive Endometrial can cer Social History Tobacco Use Types Packs/Day Years Used Date Smoking Tobacco: Never Smokeless Tobacco: Never Tobacco Cessation:Counseling Given: Not Answered Alcohol Use Standard Drinks/Week Comments Yes 1 (1 standard drink = 0.6 oz pur e alcohol) rarely AUDIT-C Answer Date Recorded Frequency of Alcohol Consumption Not on file 11/21/2023 Q2: How many drinks containi ng alcohol do you have on a typical day when you are drinking? Patient does not drink Frequency of Binge Drinking Not on file 10/25 PHQ-2 Answer Date Recorded PHQ-2 Total Score (If total score is 3 or more points, staff should administer the PHQ-9) 5 06/05/2024 Personal Safety Answer Date Recorded Have you ever been in or are you currently in a harmful physical or emotional relationship or is someone making you feel afraid or unsafe? 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 Not on file Not on fi le Obstetrics History Last Filed Vital Signs Vital Sign Reading Time Taken Comments Blood Pressure 144/84 10/15/2024 2:00 PM CHANGE CONSULTANT Pulse 84 10/15/2024 2:00 PM CHANGE CONSULTANT Temperature 36.8 ??C (98.3 ??F) 10/04/2024 5:55 PM CS T Respiratory Rate 16 08/05/2024 1:56 PM CHANGE CONSULTANT Oxygen Saturation 95% 10/15/2024 2:00 PM CHANGE CONSULTANT Inhaled Oxygen Concentration - - Weight 74 kg (163 lb 3.2 oz) 10/15/2024 2:00 PM CHANGE CONSULTANT Height 162.6 cm (5' 4 ) 10/15/2024 2:00 PM CHANGE CONSULTANT Body Mass Index 28.01 10/15/2024 2:00 PM CHANGE CONSULTANT Plan of Treatment Upcoming Encounters Date Type Department Care Team (Latest Contact Info) Description 11/02/2024 7:30 AM CHANGE CONSULTANT Hospital Encounter [facility] Operating Room [address] [place] [address] Ancelmo Milligan MD [address] [place] [address] 11/02/2024 7:30 AM CHANGE CONSULTANT - 11/02/2024 12:55 PM CHANGE CONSULTANT Surgery [facility] Operating Room [address] [place] [phone] Ancelmo Milligan MD [address] [place] [address] FUSION CERVICAL/THORACIC - POSTERIOR WITH INSTRUMENTATION C4-T1 posterior fusion with bilateral C4-5 and C7-T1 foraminotomies Scheduled Procedures Name Priority Associated Diagnoses Date/Ti me FUSION CERVICAL/THORACIC - POSTERIOR WITH INSTRUMENTATION Cervical myelopathy (HCC) 11/02/2024 7:30 AM CHANGE CONSULTANT FORAMINOTOMY CERVICAL - POSTERIOR Cervical myelopathy (HCC) 11/02/2024 7:30 AM CHANGE CONSULTANT SPINAL CORD MONITORING Cervical myelopathy (HCC) 11/02/2024 7:30 AM CHANGE CONSULTANT Health Maintenance Due Date Last Done Comments Hepatitis C Screening 1960 DTaP/Tdap/Td Vaccine (1 - Tdap) 1971 Hepatitis B Screening 1978 Regular Well Visit/Exam 18-64 1978 Zoster Vaccine (2 of 3) 08/18/2015 06/23/2015 Covid-19 Vaccine ( - season) 2024 07/24/2021, 11/07/2020, 10/18/2020 Influenza Vaccine (#1) 2024 06/23/2020, 2016 Breast Cancer Screening-Mammogram 10/10/2024 10/10/2023, 04/10/2022, 11/25/2020, Additional history exists Depression Screening 06/05/2025 06/05/2024 Colon Cancer Screening-Colonoscopy 12/26/2030 12/26/2020, 04/02/2018 Colon Cancer Screening-CT Colonography Discontinued 12/26/2020, 04/02/2018 Colon Cancer Screening-DNA Stool Discontinued 12/26/2020, 04/02/2018 Colon Cancer Screening-FIT Discontinued 12/26/2020, Colon Cancer Screening-Sigmoidoscopy Discontinued 12/26/2020, 04/02/2018 Pneumococcal vaccine <65 Aged Out No longer eligible based on patient's age to complete this topic Goals Goal Patient Goal Type Associated Problems Recent Progress Patient-Stated? Author CCM Chronic Pain Care Plan Chronic Care Management On track(2023 2:01 PM CHANGE CONSULTANT) Glenna Vann, RN Note: Problem: Chronic Pain Goals: 1. Minimize further functional decline 2. Maximize quality of life 3. Control pain Strategies: - Activity/exercise program recommendation - Conservative stepwise pain medicine strategy with multi-disciplinary approach - Recommend healthy lifestyle strategies and compensatory methods as needed Medical Devices Implanted Type Area Pot Sander Device Identifier Shelf Expiration Date Model / Serial / Lot [employer] [id number] Cage Spinal Cervical 14d X 16w X 9h 6 Degree - [id number] Implanted:Qty: 1 on 08/10/2021 by Jones Palacios MD at [facility] Cage N/A: Spine Cervical [employer] [id number] 02/06/2024 [id number] / / [id number] [employer] [id number] C-Demarcus Maxan 32mm Level 2 Fix Spine Cervical Anterior Plate Bone - [id number] Implanted:Qty: 1 on 08/10/2021 by Jones Palacios MD at [facility] Plate N/A: Spine Cervical [employer] [id number] / / [employer] [id number] Maxan 4mm 16mm Variable Angle Spine Screw Bone - [id number] Implanted:Qty: 6 on 08/10/2021 by Jones Palacios MD at [facility] Screw N/A: Spine Cervical [employer] [id number] / / [employer] 700-025 I Factor Allograft Putty Syringe Graft 2.5cc Bone - [id number] Implanted:Qty: 1 on 08/10/2021 by Jones Palacios MD at [facility] N/A: Spine Cervical [employer] 04/22/2024 [id number] / / [id number] [employer] [id number] Cage Spinal Cervical 12d X 14w X 8h 6 Degree - [id number] Implanted:Qty: 1 on 08/10/2021 by Jones Palacios MD at [facility] N/A: Spine Cervical [employer] [id number] 04/11/2025 [id number] / / [id number] Procedures Procedure Name Priority Date/Time Associated Diagnosis Comments LIPID PANEL Routine 10/15/2024 3:51 PM CHANGE CONSULTANT Primary hypertension ECG 12-LEAD Routine 10/15/2024 2:01 PM CHANGE CONSULTANT Palpitations Primary hypertension CT CERVICAL SPINE WO CONTRAST Schedule Routine, Read Routine (OP Routine) 10/15/2024 10:07 AM CHANGE CONSULTANT Cervical spinal stenosis MRI CERVICAL SPINE WO CONTRAST Schedule Routine, Read Routine (OP Routine) 10/15/2024 8:16 AM CHANGE CONSULTANT Cervical spinal stenosis MRI BRAIN WO CONTRAST Schedule Routine, Read Routine (OP Routine) 10/15/2024 8:16 AM CHANGE CONSULTANT Left leg weakness Cervical spinal stenosis Lumbar stenosis with neurogenic claudication Levoscoliosis of lumbar spine SCAN - OTHER ORDERS 10/07/2024 CARDIOLOGY DOCUMENT SCAN 10/04/2024 SCAN - LABS 10/04/2024 SCAN - RADIOLOGY/IMAGING 10/04/2024 EMG/NCV Routine 09/09/2024 8:35 AM CHANGE CONSULTANT Fasciculation of lower extremity NEURO MR OUTSIDE REFERENCE Routine 08/18/2024 6:52 PM CHANGE CONSULTANT NEURO MR OUTSIDE REFERENCE Routine 08/18/2024 6:51 PM CHANGE CONSULTANT PAIN MGMT IMAGING LUMBAR/CAUDAL EPIDURAL STEROID INJ Schedule Routine, Read Routine (OP Routine) 08/05/2024 2:51 PM CHANGE CONSULTANT Lumbar radiculopathy PAIN MGMT IMAGING LUMBAR/CAUDAL EPIDURAL STEROID INJ Schedule Routine, Read Routine (OP Routine) 07/31/2024 9:29 AM CHANGE CONSULTANT Lumbar radiculopathy XR SCOLIOSIS 6 OR MORE VIEWS Schedule Routine, Read Routine (OP Routine) 07/29/2024 11:30 AM CHANGE CONSULTANT Lumbar stenosis with neurogenic claudication SCREENING MAMMOGRAM BILATERAL W JAYESH Schedule Routine, Read Routine (OP Routine) 10/10/2023 9:03 AM CHANGE CONSULTANT Screening mammogram, encounter for COLONOSCOPY 12/26/2020 9:28 AM CDT from Last 3 Months or Most Recently Relevant to Health Maintenance Results * (ABNORMAL) Lipid panel (10/15/2024 3:51 PM CHANGE CONSULTANT) Cholesterol 276(H) 30 - 199 mg/dL Comment: Interpretive Data Ages < or = 19 years ??Acceptable: ? <170 mg/dL ??Borderline high: ??170-199 mg/dL ??High: ? >or= 200 mg/dL Ages > or = 20 years ??Desirable: ?<200 mg/dL ??Borderline high: ??200-239 mg/dL ??High: ? >or= 240 mg/dL Literature References: 1. Expert Panel on Integrated Guidelines for Cardiovascular Health and Risk Reduction in Children and Adolescents. Pediatrics 2011;128:S213 2. NCEP Expert Panel. Circulation 2004;110:227 Current Interpretive Data was last revised on 2018. Triglycerides 195(H) <=149 mg/dL SUZETTE LOPEZ Comment: Interpretive Data Ages < or = 9 years ??Acceptable: ? <75 mg/dL ??Borderline high: ??75-99 mg/dL ??High: ? >or= 100 mg/dL Ages 10 to 20 years ??Acceptable: ? <90 mg/dL ??Borderline high: ??90-129 mg/dL ??High: ? >or= 130 mg/dL Ages > or = 20 years ??Desirable: ?<150 mg/dL ??Borderline high: ??150-199 mg/dL ??High: ? 200-499 mg/dL ?Very high: ?? >or= 499 mg/dL Literature References: 1. Expert Panel on Integrated Guidelines for Cardiovascular Health and Risk Reduction in Children and Adolescents. Pediatrics 2011;128:S213 2. NCEP Expert Panel. Circulation 2004;110:227 Current Interpretive Data was last revised on 2018. HDL 63 >=40 mg/dL SUZETTE LOPEZ Comment: Interpretive Data Ages < or = 19 years ??Acceptable: ? >45 mg/dL ??Borderline low: ?? 40-45 mg/dL ??Low: ? <40 mg/dL Ages > or = 20 years ??Desirable: ?>or= 60 mg/dL ??Low: ? <40 mg/dL Literature References: 1. Expert Panel on Integrated Guidelines for Cardiovascular Health and Risk Reduction in Children and Adolescents. Pediatrics 2011;128:S213 2. NCEP Expert Panel. Circulation 2004;110:227 Current Interpretive Data was last revised on 2018. LDL, calculated 177(H) <=129 mg/dL SUZETTE LOPEZ Comment: Interpretive Data Ages < or = 19 years ??Acceptable: ? <110 mg/dL ??Borderline high: ??110-129 mg/dL ??High: ?>or= 130 mg/dL Ages > or = 20 years ??Optimal: ? <100 mg/dL ??Near optimal: ?100-129 mg/dL ??Borderline high: ?? 130-159 mg/dL ??High: ?>160 mg/dL Calculated using the Chris LDL-C estimating equation. This equation was implemented on 2024. Prior to this date LDL-C was estimated using the Friedewald equation. Literature References: 1. Expert Panel on Integrated Guidelines for Cardiovascular Health and Risk Reduction in Children and Adolescents. Pediatrics 2011;128:S213 2. NCEP Expert Panel. Circulation 2004;110:227 3. Chris M et al. SILVA Cardiol. 2020 January 21;5(5):540-548. doi: 10.1001/jamacardio.2020.0013 Current Interpretive Data was last revised on 2024. Non-HDL Cholesterol 213 mg/dL SUZETTE LOPEZ Comment: Interpretive Data Ages < or = 19 years ??Acceptable: ?<120 mg/dL ??Borderline high: ??120-144 mg/dL ??High: ?>145 mg/dL Ages > or = 20 years ??When triglycerides are >200 mg/dL, Non-HDL cholesterol is a secondary target of ? therapy with treatment goals that are 30 mg/dL greater than the LDL cholesterol target. ? Literature References: 1. Expert Panel on Integrated Guidelines for Cardiovascular Health and Risk Reduction in Children and Adolescents. Pediatrics 2011;128:S213 2. NCEP Expert Panel. Circulation 2004;110:227 Current Interpretive Data was last revised on 2018. Chol/HDL ratio 4 SUZETTE LOPEZ Blood 10/15/2024 3:51 PM CHANGE CONSULTANT 10/15/2024 5:09 PM CHANGE CONSULTANT us Carlo Alexander MD LAB BLOOD ORDERABLES Final R esult [place]ILLOJAVID M[place]ICH [address] [facility]. Department of Laboratories [place], [place] [id number] * ECG 12 lead (10/15/2024 2:01 PM CHANGE CONSULTANT) us Carlo Alexander MD ECG ORDERABLES Edited Resul t - Final * CT Cervical Spine WO Contrast (10/15/2024 10:07 AM CHANGE CONSULTANT) Anatomical Region Laterality Modality Spine N/A Computed Tomogra phy 10/15/2024 1:08 PM CHANGE CONSULTANT Impressions 10/15/2024 4:35 PM CHANGE CONSULTANT 1. Post surgical changes of anterior discectomy and fusion C5-C7 with intact hardware. 2. Moderate-severe degenerative changes of the cervical spine. Dictated by: Steven Michael M.D. The radiology attending physician has personally reviewed this study, and had reviewed and/or edited this written report and agrees with it. Electronically signed by: Yousif Neal M.D, PHD Narrative 10/15/2024 4:35 PM CHANGE CONSULTANT EXAMINATION: CT of the cervical spine without contrast HISTORY: 64-year-old female with history of anterior cervical discectomy and fusion C5-C7 with chronic myelopathy. ?? TECHNIQUE: CT of the cervical spine was performed according to the standard protocol without intravenous contrast. COMPARISON: MR cervical spine 10/15/2024 FINDINGS: Postsurgical changes of anterior discectomy and fusion C5-C7. ??No hardware slippage or fracture. ??There is straightening of the cervical spine. There is no acute fracture. Vertebral bodies are normal in height without compression fractures. The craniocervical junction is normal. Limited views of the skull base appear normal. The sphenoid sinus is well aerated. No soft tissue abnormality is identified. Up to severe multilevel degenerative changes which are better evaluated on the separately dictated same day MRI. Procedure Note Yousif Neal MD PhD - 10/15/2024 EXAMINATION: CT of the cervical spine without contrast HISTORY: 64-year-old female with history of anterior cervical discectomy and fusion C5-C7 with chronic myelopathy. TECHNIQUE: CT of the cervical spine was performed according to the standard protocol without intravenous contrast. COMPARISON: MR cervical spine 10/15/2024 FINDINGS: Postsurgical changes of anterior discectomy and fusion C5-C7. No hardware slippage or fracture. There is straightening of the cervical spine. There is no acute fracture. Vertebral bodies are normal in height without compression fractures. The craniocervical junction is normal. Limited views of the skull base appear normal. The sphenoid sinus is well aerated. No soft tissue abnormality is identified. Up to severe multilevel degenerative changes which are better evaluated on the separately dictated same day MRI. IMPRESSION: 1. Post surgical changes of anterior discectomy and fusion C5-C7 with intact hardware. 2. Moderate-severe degenerative changes of the cervical spine. Dictated by: Steven Michael M.D. The radiology attending physician has personally reviewed this study, and had reviewed and/or edited this written report and agrees with it. Electronically signed by: Yousif Neal M.D, PHD Ancelmo Milligan MD IMG CT PROCEDURES Final Result * MRI Cervical Spine WO Contrast (10/15/2024 8:16 AM CHANGE CONSULTANT) Anatomical Region Laterality Modality Spine N/A Magnetic Resonan ce 10/15/2024 10:4 7 AM CHANGE CONSULTANT Impressions 10/15/2024 12:22 PM CHANGE CONSULTANT 1. No acute intracranial abnormalities 2. Congenitally narrow spinal canal with superimposed degenerative changes of the spine. 3. Varying degrees of neural foraminal narrowing as detailed above. Dictated by: Rosanne Nunes D.O. The radiology attending physician has personally reviewed this study, and had reviewed and/or edited this written report and agrees with it. Electronically signed by: Tyler Álvarez MD Narrative 10/15/2024 12:22 PM CHANGE CONSULTANT EXAMINATION: 1. Magnetic resonance imaging (MRI) of the brain and brainstem without ??contrast 2. Magnetic resonance imaging (MRI) of the cervical spine without contrast HISTORY: Facial numbness, leg weakness and neck pain. TECHNIQUE: Multiplanar multi-weighted MRI of the brain and brainstem was performed without and with intravenous contrast using the general brain protocol. Multiplanar multi-weighted MRI of the cervical spine was performed without and with intravenous contrast using the standard protocol. COMPARISON: MRI cervical spine 08/07/2024, CT CERVICAL spine 10/15/2024 FINDINGS: BRAIN: The scalp and calvarium are normal. The superior sagittal sinus demonstrates normal venous flow. The corpus callosum is normal in shape and signal intensity. The posterior fossa is unremarkable. The pituitary and sella are normal. The brainstem and craniocervical junction are unremarkable. Diffusion weighted images reveal no hyperintensities to suggest acute cerebral infarction. The susceptibility weighted sequences reveal no evidence of acute or chronic hemorrhage. The ventricles are normal in size and position without evidence of hydrocephalus. The paranasal sinuses are normal. The visualized portions of the mastoids are unremarkable. The orbits appear normal. Normal flow voids are demonstrated in the carotid arteries and basilar artery. CERVICAL SPINE: Postsurgical changes of anterior discectomy and fusion C5-C7 with osseous bridging better appreciated on comparison CT. ??C6-C7 facet fusion. Straightening of the cervical spine. ??Mild retrolisthesis of C4 on C5.. Vertebral bodies demonstrate normal signal intensity on all sequences. No acute fracture is identified. The craniocervical junction is normal. The visualized portions of the skull base and the posterior fossa are normal. The spinal cord demonstrates normal signal intensity on all sequences. Multilevel disc desiccation. There are no annular fissures identified. No soft tissue abnormality is identified. Normal signal voids are present in the vertebral arteries. There is no abnormal contrast enhancement. Congenitally narrow spinal canal. C2-C3: Circumferential disc bulge There is mild bilateral facet arthropathy. There is no uncovertebral joint disease. There is no neuroforaminal stenosis. There is no spinal canal stenosis. C3-C4: Circumferential disc bulge with superimposed small central disc protrusion There is severe right and moderate left facet arthropathy. There is moderate uncovertebral joint disease. There is moderate right and mild left neuroforaminal stenosis. There is mild spinal canal stenosis. C4-C5: Circumferential disc bulge There is mild bilateral facet arthropathy. There is moderate uncovertebral joint disease. There is moderate bilateral neuroforaminal stenosis. There is moderate spinal canal stenosis. C5-C6: Anterior discectomy and fusion There is severe bilateral facet arthropathy. There is severe uncovertebral joint disease. There is moderate bilateral neuroforaminal stenosis. There is mild spinal canal stenosis. C6-C7: Postsurgical changes as above There is severe left and moderate right facet arthropathy. There is severe uncovertebral joint disease. There is bilateral mild neuroforaminal stenosis. There is mild spinal canal stenosis. C7-T1: Circumferential disc bulge with left subarticular disc extrusion. ??Ligamentum flavum hypertrophy. ??There is severe bilateral facet arthropathy. There is severe uncovertebral joint disease. There is moderate right neuroforaminal stenosis. There is mild spinal canal stenosis. Procedure Note Tyler Álvarez MD - 10/15/2024 EXAMINATION: 1. Magnetic resonance imaging (MRI) of the brain and brainstem without contrast 2. Magnetic resonance imaging (MRI) of the cervical spine without contrast HISTORY: Facial numbness, leg weakness and neck pain. TECHNIQUE: Multiplanar multi-weighted MRI of the brain and brainstem was performed without and with intravenous contrast using the general brain protocol. Multiplanar multi-weighted MRI of the cervical spine was performed without and with intravenous contrast using the standard protocol. COMPARISON: MRI cervical spine 08/07/2024, CT CERVICAL spine 10/15/2024 FINDINGS: BRAIN: The scalp and calvarium are normal. The superior sagittal sinus demonstrates normal venous flow. The corpus callosum is normal in shape and signal intensity. The posterior fossa is unremarkable. The pituitary and sella are normal. The brainstem and craniocervical junction are unremarkable. Diffusion weighted images reveal no hyperintensities to suggest acute cerebral infarction. The susceptibility weighted sequences reveal no evidence of acute or chronic hemorrhage. The ventricles are normal in size and position without evidence of hydrocephalus. The paranasal sinuses are normal. The visualized portions of the mastoids are unremarkable. The orbits appear normal. Normal flow voids are demonstrated in the carotid arteries and basilar artery. CERVICAL SPINE: Postsurgical changes of anterior discectomy and fusion C5-C7 with osseous bridging better appreciated on comparison CT. C6-C7 facet fusion. Straightening of the cervical spine. Mild retrolisthesis of C4 on C5.. Vertebral bodies demonstrate normal signal intensity on all sequences. No acute fracture is identified. The craniocervical junction is normal. The visualized portions of the skull base and the posterior fossa are normal. The spinal cord demonstrates normal signal intensity on all sequences. Multilevel disc desiccation. There are no annular fissures identified. No soft tissue abnormality is identified. Normal signal voids are present in the vertebral arteries. There is no abnormal contrast enhancement. Congenitally narrow spinal canal. C2-C3: Circumferential disc bulge There is mild bilateral facet arthropathy. There is no uncovertebral joint disease. There is no neuroforaminal stenosis. There is no spinal canal stenosis. C3-C4: Circumferential disc bulge with superimposed small central disc protrusion There is severe right and moderate left facet arthropathy. There is moderate uncovertebral joint disease. There is moderate right and mild left neuroforaminal stenosis. There is mild spinal canal stenosis. C4-C5: Circumferential disc bulge There is mild bilateral facet arthropathy. There is moderate uncovertebral joint disease. There is moderate bilateral neuroforaminal stenosis. There is moderate spinal canal stenosis. C5-C6: Anterior discectomy and fusion There is severe bilateral facet arthropathy. There is severe uncovertebral joint disease. There is moderate bilateral neuroforaminal stenosis. There is mild spinal canal stenosis. C6-C7: Postsurgical changes as above There is severe left and moderate right facet arthropathy. There is severe uncovertebral joint disease. There is bilateral mild neuroforaminal stenosis. There is mild spinal canal stenosis. C7-T1: Circumferential disc bulge with left subarticular disc extrusion. Ligamentum flavum hypertrophy. There is severe bilateral facet arthropathy. There is severe uncovertebral joint disease. There is moderate right neuroforaminal stenosis. There is mild spinal canal stenosis. IMPRESSION: 1. No acute intracranial abnormalities 2. Congenitally narrow spinal canal with superimposed degenerative changes of the spine. 3. Varying degrees of neural foraminal narrowing as detailed above. Dictated by: Rosanne Nunes D.O. The radiology attending physician has personally reviewed this study, and had reviewed and/or edited this written report and agrees with it. Electronically signed by: Tyler Álvarez MD Ancelmo Milligan MD IM MRI PROCEDURES Final Result * MRI Brain WO Contrast (10/15/2024 8:16 AM CHANGE CONSULTANT) Anatomical Region Laterality Modality Head and Neck N/A Magnetic Resonan ce 10/15/2024 10:4 7 AM CHANGE CONSULTANT Impressions 10/15/2024 12:22 PM CHANGE CONSULTANT 1. No acute intracranial abnormalities 2. Congenitally narrow spinal canal with superimposed degenerative changes of the spine. 3. Varying degrees of neural foraminal narrowing as detailed above. Dictated by: Rosanne Nunes D.O. The radiology attending physician has personally reviewed this study, and had reviewed and/or edited this written report and agrees with it. Electronically signed by: Tyler Álvarez MD Narrative 10/15/2024 12:22 PM CHANGE CONSULTANT EXAMINATION: 1. Magnetic resonance imaging (MRI) of the brain and brainstem without ??contrast 2. Magnetic resonance imaging (MRI) of the cervical spine without contrast HISTORY: Facial numbness, leg weakness and neck pain. TECHNIQUE: Multiplanar multi-weighted MRI of the brain and brainstem was performed without and with intravenous contrast using the general brain protocol. Multiplanar multi-weighted MRI of the cervical spine was performed without and with intravenous contrast using the standard protocol. COMPARISON: MRI cervical spine 08/07/2024, CT CERVICAL spine 10/15/2024 FINDINGS: BRAIN: The scalp and calvarium are normal. The superior sagittal sinus demonstrates normal venous flow. The corpus callosum is normal in shape and signal intensity. The posterior fossa is unremarkable. The pituitary and sella are normal. The brainstem and craniocervical junction are unremarkable. Diffusion weighted images reveal no hyperintensities to suggest acute cerebral infarction. The susceptibility weighted sequences reveal no evidence of acute or chronic hemorrhage. The ventricles are normal in size and position without evidence of hydrocephalus. The paranasal sinuses are normal. The visualized portions of the mastoids are unremarkable. The orbits appear normal. Normal flow voids are demonstrated in the carotid arteries and basilar artery. CERVICAL SPINE: Postsurgical changes of anterior discectomy and fusion C5-C7 with osseous bridging better appreciated on comparison CT. ??C6-C7 facet fusion. Straightening of the cervical spine. ??Mild retrolisthesis of C4 on C5.. Vertebral bodies demonstrate normal signal intensity on all sequences. No acute fracture is identified. The craniocervical junction is normal. The visualized portions of the skull base and the posterior fossa are normal. The spinal cord demonstrates normal signal intensity on all sequences. Multilevel disc desiccation. There are no annular fissures identified. No soft tissue abnormality is identified. Normal signal voids are present in the vertebral arteries. There is no abnormal contrast enhancement. Congenitally narrow spinal canal. C2-C3: Circumferential disc bulge There is mild bilateral facet arthropathy. There is no uncovertebral joint disease. There is no neuroforaminal stenosis. There is no spinal canal stenosis. C3-C4: Circumferential disc bulge with superimposed small central disc protrusion There is severe right and moderate left facet arthropathy. There is moderate uncovertebral joint disease. There is moderate right and mild left neuroforaminal stenosis. There is mild spinal canal stenosis. C4-C5: Circumferential disc bulge There is mild bilateral facet arthropathy. There is moderate uncovertebral joint disease. There is moderate bilateral neuroforaminal stenosis. There is moderate spinal canal stenosis. C5-C6: Anterior discectomy and fusion There is severe bilateral facet arthropathy. There is severe uncovertebral joint disease. There is moderate bilateral neuroforaminal stenosis. There is mild spinal canal stenosis. C6-C7: Postsurgical changes as above There is severe left and moderate right facet arthropathy. There is severe uncovertebral joint disease. There is bilateral mild neuroforaminal stenosis. There is mild spinal canal stenosis. C7-T1: Circumferential disc bulge with left subarticular disc extrusion. ??Ligamentum flavum hypertrophy. ??There is severe bilateral facet arthropathy. There is severe uncovertebral joint disease. There is moderate right neuroforaminal stenosis. There is mild spinal canal stenosis. Procedure Note Tyler Álvarez MD - 10/15/2024 EXAMINATION: 1. Magnetic resonance imaging (MRI) of the brain and brainstem without contrast 2. Magnetic resonance imaging (MRI) of the cervical spine without contrast HISTORY: Facial numbness, leg weakness and neck pain. TECHNIQUE: Multiplanar multi-weighted MRI of the brain and brainstem was performed without and with intravenous contrast using the general brain protocol. Multiplanar multi-weighted MRI of the cervical spine was performed without and with intravenous contrast using the standard protocol. COMPARISON: MRI cervical spine 08/07/2024, CT CERVICAL spine 10/15/2024 FINDINGS: BRAIN: The scalp and calvarium are normal. The superior sagittal sinus demonstrates normal venous flow. The corpus callosum is normal in shape and signal intensity. The posterior fossa is unremarkable. The pituitary and sella are normal. The brainstem and craniocervical junction are unremarkable. Diffusion weighted images reveal no hyperintensities to suggest acute cerebral infarction. The susceptibility weighted sequences reveal no evidence of acute or chronic hemorrhage. The ventricles are normal in size and position without evidence of hydrocephalus. The paranasal sinuses are normal. The visualized portions of the mastoids are unremarkable. The orbits appear normal. Normal flow voids are demonstrated in the carotid arteries and basilar artery. CERVICAL SPINE: Postsurgical changes of anterior discectomy and fusion C5-C7 with osseous bridging better appreciated on comparison CT. C6-C7 facet fusion. Straightening of the cervical spine. Mild retrolisthesis of C4 on C5.. Vertebral bodies demonstrate normal signal intensity on all sequences. No acute fracture is identified. The craniocervical junction is normal. The visualized portions of the skull base and the posterior fossa are normal. The spinal cord demonstrates normal signal intensity on all sequences. Multilevel disc desiccation. There are no annular fissures identified. No soft tissue abnormality is identified. Normal signal voids are present in the vertebral arteries. There is no abnormal contrast enhancement. Congenitally narrow spinal canal. C2-C3: Circumferential disc bulge There is mild bilateral facet arthropathy. There is no uncovertebral joint disease. There is no neuroforaminal stenosis. There is no spinal canal stenosis. C3-C4: Circumferential disc bulge with superimposed small central disc protrusion There is severe right and moderate left facet arthropathy. There is moderate uncovertebral joint disease. There is moderate right and mild left neuroforaminal stenosis. There is mild spinal canal stenosis. C4-C5: Circumferential disc bulge There is mild bilateral facet arthropathy. There is moderate uncovertebral joint disease. There is moderate bilateral neuroforaminal stenosis. There is moderate spinal canal stenosis. C5-C6: Anterior discectomy and fusion There is severe bilateral facet arthropathy. There is severe uncovertebral joint disease. There is moderate bilateral neuroforaminal stenosis. There is mild spinal canal stenosis. C6-C7: Postsurgical changes as above There is severe left and moderate right facet arthropathy. There is severe uncovertebral joint disease. There is bilateral mild neuroforaminal stenosis. There is mild spinal canal stenosis. C7-T1: Circumferential disc bulge with left subarticular disc extrusion. Ligamentum flavum hypertrophy. There is severe bilateral facet arthropathy. There is severe uncovertebral joint disease. There is moderate right neuroforaminal stenosis. There is mild spinal canal stenosis. IMPRESSION: 1. No acute intracranial abnormalities 2. Congenitally narrow spinal canal with superimposed degenerative changes of the spine. 3. Varying degrees of neural foraminal narrowing as detailed above. Dictated by: Rosanne Nunes D.O. The radiology attending physician has personally reviewed this study, and had reviewed and/or edited this written report and agrees with it. Electronically signed by: Tyler Álvarez MD us [facility] MRI PROCEDURES Final Result * SCAN - OTHER ORDERS (10/07/2024) us Provider Scanning Final Result * SCAN - RADIOLOGY/IMAGING (10/04/2024) Anatomical Region Laterality Modality Other us Provider Scanning Final Result * SCAN - LABS (10/04/2024) us Provider Scanning Final Result * Cardiology Document Scan (10/04/2024) Anatomical Region Laterality Modality Other us Provider Scanning CV CARDIAC SERVICES PROCEDURES Final Result * EMG/NCV (09/09/2024 8:35 AM CHANGE CONSULTANT) Anatomical Region Laterality Modality Other Narrative 09/09/2024 8:35 AM CHANGE CONSULTANT Benjamin Dorantes MD ? 09/09/2024 10:46 AM EMG/NCV - Date/Time: 09/09/2024 8:35 AM Performed by: Benjamin Dorantes MD Authorized by: Glenna Clemens MD ?? Glenna Clemens MD NEUROLOGY ORDERABLES Final Result * Neuro MR Outside Reference (08/18/2024 6:52 PM CHANGE CONSULTANT) Impressions [facility] - 08/18/2024 6:52 PM CHANGE CONSULTANT These images are for Reference purposes only and have not been reviewed by [facility] Radiology. ??There will be no report generated by a [facility] Radiologist. Narrative [facility] - 08/18/2024 6:52 PM CHANGE CONSULTANT EXAMINATION: ??Images For Reference Purposes Only us Ancelmo Milligan MD IMG MRI PROCEDURES Final Result [facility] * Neuro MR Outside Reference (08/18/2024 6:51 PM CHANGE CONSULTANT) Impressions [facility] - 08/18/2024 6:51 PM CHANGE CONSULTANT These images are for Reference purposes only and have not been reviewed by [facility] Radiology. ??There will be no report generated by a [facility] Radiologist. Narrative [facility] - 08/18/2024 6:51 PM CHANGE CONSULTANT EXAMINATION: ??Images For Reference Purposes Only Ancelmo Milligan MD [facility] MRI PROCEDURES Final Result Performing Organization Address [facility] de Phone Number [email or web address] * Imaging Lumbar/Caudal Epidural Steroid INJ ([id number]) (08/05/2024 2:51 PM CHANGE CONSULTANT) Narrative [facility] - 08/05/2024 2:51 PM CHANGE CONSULTANT The images from this study are not interpreted by Radiology. ??Please refer to the physician's procedure / OR operative note. Glenna Clemens MD [facility] PAIN MGMT PROCEDURES Fi nal Result Performing Organization Address [facility] de Phone Number [email or web address] * Imaging Lumbar/Caudal Epidural Steroid INJ ([id number]) (07/31/2024 9:29 AM CHANGE CONSULTANT) Narrative [facility] - 07/31/2024 9:33 AM CHANGE CONSULTANT The images from this study are not interpreted by Radiology. ??Please refer to the physician's procedure / OR operative note. Glenna Clemens MD [facility] PAIN MGMT PROCEDURES Fi nal Result Performing Organization Address [facility] de Phone Number [email or web address] * XR Scoliosis 6 or More Views (07/29/2024 11:30 AM CHANGE CONSULTANT) Anatomical Region Laterality Modality Spine N/A Computed Radiogr aphy 07/29/2024 12:2 9 PM CHANGE CONSULTANT Impressions 07/29/2024 12:29 PM CHANGE CONSULTANT 1. ??Unchanged mild lumbar levoscoliosis with severe degenerative disc changes L2-L5. 2. ??Moderate to severe lower lumbar facet arthropathy. Electronically signed by: Steve Snyder D.O. Narrative 07/29/2024 12:29 PM CHANGE CONSULTANT EXAMINATION: XR SCOLIOSIS 6 OR MORE VIEWS HISTORY: low back pain COMPARISON: Radiographs 04/26/2023. FINDINGS: Unchanged mild lumbar levoscoliosis centered at L3. ??Neutral coronal balance with mild superior pelvic obliquity Straightening of lumbar lordosis. ??No spondylolisthesis. ??Number vertebral body heights. Severe degenerative disc changes along the lumbar convexity, L2-L5. Moderate to severe lower lumbar facet arthropathy. ??Hypomobile lumbar spine without dynamic instability. ??C5-C7 anterior fusion, intact hardware. Procedure Note Steve Snyder, - 07/29/2024 EXAMINATION: XR SCOLIOSIS 6 OR MORE VIEWS HISTORY: low back pain COMPARISON: Radiographs 04/26/2023. FINDINGS: Unchanged mild lumbar levoscoliosis centered at L3. Neutral coronal balance with mild superior pelvic obliquity Straightening of lumbar lordosis. No spondylolisthesis. Number vertebral body heights. Severe degenerative disc changes along the lumbar convexity, L2-L5. Moderate to severe lower lumbar facet arthropathy. Hypomobile lumbar spine without dynamic instability. C5-C7 anterior fusion, intact hardware. IMPRESSION: 1. Unchanged mild lumbar levoscoliosis with severe degenerative disc changes L2-L5. 2. Moderate to severe lower lumbar facet arthropathy. Electronically signed by: Steve Snyder D.O. Ancelmo Milligan MD IMG XR PROCEDURES Final Result * Screening Mammogram Bilateral W Jayesh (10/10/2023 9:03 AM CHANGE CONSULTANT) Anatomical Region Laterality Modality Breast Bilateral Mammography Narrative 10/10/2023 1:33 PM CHANGE CONSULTANT Mammogram Technique: Bilateral Digital Breast Tomosynthesis, Bilateral C-view 2D Screening mammogram. ??Views obtained: ??bilateral craniocaudal and bilateral mediolateral oblique. ??Computer Aided Detection was performed. Mammogram Findings: The present examination has been compared to prior imaging studies performed at [facility] on 07/28/2019, 11/25/2020 and 04/10/2022. The breasts are heterogeneously dense, which may obscure small masses. There is no suspicious abnormality in either breast. Impression: There is no mammographic evidence of malignancy. Annual screening mammography is recommended. If supplemental screening is desired, breast MRI would be recommended in this patient with heterogeneously dense breasts. OVERALL FINAL ASSESSMENT: BI-RADS CATEGORY 1: ??Negative. Procedure Note Quyen Gonzalez MD - 10/10/2023 Mammogram Technique: Bilateral Digital Breast Tomosynthesis, Bilateral C-view 2D Screening mammogram. Views obtained: bilateral craniocaudal and bilateral mediolateral oblique. Computer Aided Detection was performed. Mammogram Findings: The present examination has been compared to prior imaging studies performed at [facility] on 07/28/2019, 11/25/2020 and 04/10/2022. The breasts are heterogeneously dense, which may obscure small masses. There is no suspicious abnormality in either breast. Impression: There is no mammographic evidence of malignancy. Annual screening mammography is recommended. If supplemental screeningis desired, breast MRI would be recommended in this patient with heterogeneously dense breasts. OVERALL FINAL ASSESSMENT: BI-RADS CATEGORY 1: Negative. us Self Screening Mammogram IMG MAMMO PROCEDURES Fi nal Result * COLONOSCOPY (12/26/2020 9:28 AM CDT) Anatomical Region Laterality Modality Other Narrative Procedure Note Allie Urban MD - 12/26/2020 9:28 AM CDT ENDOSCOPY LAB Patient Name: Christopher Castro Procedure Date: 12/26/2020 9:28 AM Date of : 1960 Admit Type: Outpatient Age: 60 Gender: Female Attending MD: Allie Urban M.D. Room: [facility] ENDOSCOPY ROOM 01 Note Status: Finalized Procedure: Colonoscopy Indications: Change in bowel habits Comorbidities Personal h/o colon polyps, family history colon cancer in brother age 67. History of recurrent diverticulitis. Providers: Allie Urban M.D. Referring MD: Self Referral Medicines: Monitored Anesthesia Care Complications: No immediate complications. Estimated blood loss: Minimal. Estimated Blood Loss: Estimated blood loss was minimal. Procedure: Pre-Anesthesia Assessment: - Immediately prior to administration ofmedications, the patient was re-assessed for adequacy to receive sedatives. The benefits, risks and alternatives of theprocedure and sedation were discussed and informed consentwas obtained. All questions were answered. Please referto the signed informed consent document in the medical record. The scope was passed under direct vision.The [id number] was introduced through the anusand advanced to the terminal ileum. The colonoscopy was performed without difficulty. The patient tolerated the procedure well. The quality of the bowel preparation was evaluated using the BBPS (BostonBowel Preparation Scale) with scores of: Right Colon = 3, Transverse Colon = 3 and Left Colon = 3 (entiremucosa seen well with no residual staining, smallfragments of stool or opaque liquid). The total BBPS score equals 9. Findings: The digital rectal exam was normal. The terminal ileum appeared normal. A 3 mm polyp was found in the cecum. The polyp was sessile. The polyp was removed with a cold snare. Resection and retrieval werecomplete. A 3 mm polyp was found in the transverse colon. The polyp wassessile. The polyp was removed with a cold snare. Resection and retrieval were complete. Multiple diverticula were found in the sigmoid colon. Internal hemorrhoids were found during retroflexion. The hemorrhoids were small. Impression: - The examined portion of the ileum was normal. - One 3 mm polyp in the cecum, removed with a cold snare. Resected and retrieved. - One 3 mm polyp in the transverse colon, removedwith a cold snare. Resected and retrieved. - Diverticulosis in the sigmoid colon. - Internal hemorrhoids. Recommendation: - Repeat colonoscopy in 5 years for surveillance. - Patient has a contact number available for emergencies. The signs and symptoms of potential delayed complications were discussed with thepatient. Return to normal activities tomorrow. Written discharge instructions were provided to thepatient. - Contact Information: During normal business hours - [facility] [place] Coordinator: [phone] After hours, evening, nights, weekends and holidays- Please call the hospital keying machine operator at and ask for the GI fellow gas station attendant. Electronically by Dr Allie Urban Allie Urban M.D. 12/26/2020 9:52:12 AM Number of Addenda: 0 Note Initiated On: 12/26/2020 9:28 AM Allie Urban MD ENDOSCOPY PROCEDURES Final Result from Last 3 Months or Most Recently Relevant to Health Maintenance Insurance [employer] [facility] OPEN ACCESS [facility] [id number] [facility] [id number] [facility] [id number] Advance Directives For more information, please contact: [phone] * Full Code (Latest Code Status on File) Date Activated Date Inactivated Comments 04/12/2023 2:33 PM 04/15/2023 1:54 PM * Full Code Date Activated Date Inactivated Comments 08/10/2021 3:37 PM 08/11/2021 2:27 PM * Full Code Date Activated Date Inactivated Comments 12/26/2020 8:38 AM 12/26/2020 2:45 PM * Full Code Date Activated Date Inactivated Comments 06/16/2018 1:59 PM 06/16/2018 5:53 PM * Full Code Date Activated Date Inactivated Comments 04/02/2018 8:21 AM 04/02/2018 1:40 PM Care Teams Forensic Chemist Relationship Specialty Start Date End Date Steve Arceo MD PCP - General 08/23/10 John Saenz MD [address] [facility] [place] [phone] [place] [address] Consulting Physician General Surgery 04/15/23 Allie Urban MD [address] [place] [address] Defence Force Senior Officer Gastroenterology 04/29/23 Glenna Clemens MD [address] [place] [place] [address] Consulting Physician Pain Management 06/05/24
--- OUTSIDE RECORDS SUMMARY | 2024-10-16 01:52 | XMS_ITS | Encounter Summary ---
Author Organization [facility] Healthcare Address [address] [place] [address] Care Team Providers Care Tube Balancer Name Role Phone Steve Arceo MD Primary Care Provider [phone] John Saenz MD Unavailable [phone] Allie Urban MD Unavailable [phone] Glenna Clemens MD Unavailable [phone] Encounter Details Date Type Department Care Team (Late st Contact Info) Description 11/21/2018 Telephone [facility] Pain Center at [address] [place] [address] Winnie Siu RN Social History Tobacco Use Types Packs/Day Years Used Date Smoking Tobacco: Never Smokeless Tobacco: Never Alcohol Use Standard Drinks/Week Comments Yes 1 (1 standard drink = 0.6 oz pur e alcohol) Comments No Sex and Gender Information Value Date Recorded Sex Assigned at Not on file Legal Sex Female 1:35 AM BRICK AND BLOCK MASON Gender Identity Not on file Sexual Orientation Not on file 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 Not on file Not on le documented as of this encounter Plan of Treatment Upcoming Encounters Date Type Department Care Team (Latest Contact Info) Description 11/02/2024 7:30 AM [employer]ICK AND BLOCK [employer]ON Hospital Encounter [facility] Operating Room [address] [place] [address] Ancelmo Milligan MD [address] [place] [address] 11/02/2024 7:30 AM [employer] AND BLOCK [employer]ON - 11/02/2024 12:55 PM [employer] AND BLOCK [employer]ON Surgery [facility] Operating Room [address] [place] [address] Ancelmo Milligan MD [address] [place] [address] FUSION CERVICAL/THORACIC - POSTERIOR WITH INSTRUMENTATION C4-T1 posterior fusion with bilateral C4-5 and C7-T1 foraminotomies Scheduled Procedures Name Priority Associated Diagnoses Date/Ti me FUSION CERVICAL/THORACIC - POSTERIOR WITH INSTRUMENTATION Cervical myelopathy (HCC) 11/02/2024 7:30 AM [employer]ICK AND BLOCK MASON FORAMINOTOMY CERVICAL - POSTERIOR Cervical myelopathy ([facility]) 11/02/2024 7:30 AM BRICK AND BLOCK MASON SPINAL CORD MONITORING Cervical myelopathy ([facility]) 11/02/2024 7:30 AM BRICK AND BLOCK MASON documented as of this encounter Visit Diagnoses Not on filedocumented in this encounter Additional Health Concerns Infection Onset Date Last Indicated Resolved Time COVID: Suspected 07/04/2020 07/04/2020 07/05/2020 7:27 AM CDT Respiratory Infection (BEATRIZ), contact + droplet Comment:Automatically added due to negative COVID-19 result. 07/05/2020 07/05/2020 07/19/2020 3:0 5 AM CDT COVID: Suspected 07/11/2020 07/11/2020 07/12/2020 5:26 PM CDT COVID: Suspected 01/26/2021 01/26/2021 01/27/2021 6:05 AM CDT COVID: Suspected 09/13/2021 09/13/2021 09/13/2021 11:44 AM [employer]ON COVID: Suspected 09/24/2021 09/24/2021 09/24/2021 6:34 PM [employer] COVID: Suspected 09/24/2021 09/24/2021 09/25/2021 8:06 AM [employer]ON COVID19 09/24/2021 09/24/[address]/08/2021 3:05 AM [employer]ON COVID: Recovered Comment:Added based on recent COVID infection. 10/08/2021 10/11/2021 02/05/2022 3:05 AM C DT COVID: Suspected 06/18/2022 06/18/2022 06/18/2022 3:37 PM CDT COVID19 06/18/2022 06/18/2022 06/28/2022 3:05 AM CDT COVID: Recovered Comment:Added based on recent COVID infection. 06/28/2022 07/23/2022 09/26/2022 3:[address] COVID: Suspected 09/09/2023 09/09/2023 09/09/2023 8:31 PM [employer]ON documented as of this encounter Care Teams Tube Balancer Relationship Specialty Start Date End Date Steve Arceo MD PCP - General 08/23/10 John Saenz MD [address] [facility] [phone] [place] [address] Consulting Physician General Surgery 04/15/23 Allie Urban MD [address] [place] [address] Household Appliance Assembler Gastroenterology 04/29/23 Glenna Clemens MD [address] [place] [address] Consulting Physician Pain Management 06/05/24 documented as of this encounter
--- OUTSIDE RECORDS SUMMARY | 2024-10-16 01:52 | XMS_ITS | Encounter Summary ---
Author Organization [facility] Address [address] [place] [address] Phone Care Team Providers Care Exploration Driller Name Role Phone Steve Arceo MD Primary Care Provider [phone] John Saenz MD Unavailable Allie Urban MD Unavailable Glenna Clemens MD Unavailable [phone] Encounter Details Date Type Department Care Team (Latest Contact Info) Description 05/27/2017 Orders Only [facility] CONVERSION Scanning, Provider Social History Tobacco Use Types Packs/Day Years Used Date Smoking Tobacco: Never Assessed Comments Unknown Sex and Gender Information Value Date Recorded Sex Assigned at Not on file Legal Sex Female 1:35 AM AGRICULTURAL PRODUCE SORTER Gender Identity Not on file Sexual Orientation Not on file documented as of this encounter Plan of Treatment Upcoming Encounters Date Type Department Care Team (Latest Contact Info) Description 11/02/2024 7:30 AM AGRICULTURAL PRODUCE SORTER Hospital Encounter [facility] Operating Room [address] [place] [address] Ancelmo Milligan MD [address] [place] [address] 11/02/2024 7:30 AM AGRICULTURAL PRODUCE SORTER - 11/02/2024 12:55 PM AGRICULTURAL PRODUCE SORTER Surgery [facility] Operating Room 1 [facility] [address] Ancelmo Milligan MD [address] [place] [address] FUSION CERVICAL/THORACIC - POSTERIOR WITH INSTRUMENTATION C4-T1 posterior fusion with bilateral C4-5 and C7-T1 foraminotomies Scheduled Procedures Name Priority Associated Diagnoses Date/Ti me FUSION CERVICAL/THORACIC - POSTERIOR WITH INSTRUMENTATION Cervical myelopathy (HCC) 11/02/2024 7:30 AM AGRICULTURAL PRODUCE SORTER FORAMINOTOMY CERVICAL - POSTERIOR Cervical myelopathy (HCC) 11/02/2024 7:30 AM AGRICULTURAL PRODUCE SORTER SPINAL CORD MONITORING Cervical myelopathy ([facility]) 11/02/2024 7:30 AM AGRICULTURAL PRODUCE SORTER documented as of this encounter Procedures Procedure Name Priority Date/Time Associated Diagnosis Comments VASCULAR LABORATORY REPORT 05/27/2017 2:57 PM CDT documented in this encounter Results * VASCULAR LABORATORY REPORT (05/27/2017 2:57 PM CDT) Anatomical Region Laterality Modality Ultrasound us Provider Scanning CV VASCULAR PROCEDURES Final R esult documented in this encounter Visit Diagnoses Not on filedocumented [...] COVID: Suspected 09/13/2021 09/13/2021 09/13/2021 11:44 AM AGRICULTURAL PRODUCE SORTER COVID: Suspected 09/24/2021 09/24/2021 09/24/2021 6:34 PM AGRICULTURAL PRODUCE SORTER COVID: Suspected 09/24/2021 09/24/2021 09/25/2021 8:06 AM AGRICULTURAL PRODUCE SORTER COVID19 09/24/2021 09/24/2021 10/08/2021 3:05 AM AGRICULTURAL PRODUCE SORTER COVID: Recovered Comment:Added based on recent COVID infection. 10/08/2021 10/11/2021 02/05/2022 3:05 AM C DT COVID: Suspected 06/18/2022 06/18/2022 06/18/2022 3:37 PM CDT COVID19 06/18/2022 06/18/2022 06/28/2022 3:05 AM CDT COVID: Recovered Comment:Added based on recent COVID infection. 06/28/2022 07/23/2022 09/26/2022 3:[address] COVID: Suspected 09/09/2023 09/09/2023 09/09/2023 8:31 PM AGRICULTURAL PRODUCE SORTER documented as of this encounter Care Teams Exploration Driller Relationship Specialty Start Date End Date Steve Arceo MD PCP - General 08/23/10 John Saenz MD [address] [facility] [place] [phone] [place] [address] Consulting Physician General Surgery 04/15/23 Allie Urban MD [address] [place] [address] Screw Cutter Gastroenterology 04/29/23 Glenna Clemens MD [address] [place] [address] Consulting Physician Pain Management 06/05/24 documented as of this encounter
--- OUTSIDE RECORDS SUMMARY | 2024-10-16 01:52 | XMS_ITS | Encounter Summary ---
Author Organization [facility] Address [address] [place] [address] Phone Care Team Providers Care Mental Health Program Manager Name Role Phone Steve Arceo MD Primary Care Provider [phone] John Saenz MD Unavailable [phone] Allie Urban MD Unavailable [phone] Glenna Clemens MD Unavailable [phone] Encounter Details Date Type Department Care Team (Latest Contact Info) Description 10/04/2024 Orders Only [facility] Scanning, Provider Social History Tobacco Use Types [...] on file Legal Sex Female 1:35 AM PORTABLE PINCH RIVETER Gender Identity Not on file Sexual Orientation Not on file 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 Not on fi le documented as of this encounter Plan of Treatment Upcoming Encounters Date Type Department Care Team (Latest Contact Info) Description 11/02/2024 7:30 AM PORTABLE PINCH RIVETER Hospital Encounter [facility] Operating Room 1 [place] [address] Acnelmo Milligan MD [address] [place] [address] 11/02/2024 7:30 AM PORTABLE PINCH RIVETER - 11/02/2024 12:55 PM PORTABLE PINCH RIVETER Surgery [facility] Operating Room 1 [place] [address] Ancelmo Milligan MD [address] [place] [address] FUSION CERVICAL/THORACIC - POSTERIOR WITH INSTRUMENTATION C4-T1 posterior fusion with bilateral C4-5 and C7-T1 foraminotomies Scheduled Procedures Name Priority Associated Diagnoses Date/Ti me FUSION CERVICAL/THORACIC - POSTERIOR WITH INSTRUMENTATION Cervical myelopathy (HCC) 11/02/2024 7:30 AM PORTABLE PINCH RIVETER FORAMINOTOMY CERVICAL - POSTERIOR Cervical myelopathy (HCC) 11/02/2024 7:30 AM PORTABLE PINCH RIVETER SPINAL CORD MONITORING Cervical myelopathy (HCC) 11/02/2024 7:30 AM PORTABLE PINCH RIVETER documented as of this encounter Goals Goal Patient Goal Type Associated Problems Recent Progress Patient-Stated? Author CCM Chronic Pain Care Plan Chronic Care Management On track(2023 2:01 PM PORTABLE PINCH RIVETER) No Glenna Wilson, RN Note: Problem: Chronic Pain Goals: 1. Minimize further functional decline 2. Maximize quality of life 3. Control pain Strategies: - Activity/exercise program recommendation - Conservative stepwise pain medicine strategy with multi-disciplinary approach - Recommend healthy lifestyle strategies and compensatory methods as needed documented as of this encounter Procedures Procedure Name Priority Date/Time Associated Diagnosis Comments SCAN - RADIOLOGY/IMAGING 10/04/2024 SCAN - LABS 10/04/2024 CARDIOLOGY DOCUMENT SCAN 10/04/2024 documented in this encounter Results * SCAN - LABS (10/04/2024) us Provider Scanning Final Result * SCAN - RADIOLOGY/IMAGING (10/04/2024) Anatomical Region Laterality Modality Other us Provider Scanning Final Result * Cardiology Document Scan (10/04/2024) Anatomical Region Laterality Modality Other us Provider Scanning CV CARDIAC SERVICES PROCEDURES Final Result documented in this encounter Visit Diagnoses Not on filedocumented in this encounter Care Teams Mental Health Program Manager Relationship Specialty Start Date End Date Steve Arceo MD PCP - General 08/23/10 John Saenz MD [address] [facility] [phone] [place] [address] Consulting Physician General Surgery 04/15/23 Allie Urban MD [address] [place] [address] Toeing Stockings Gastroenterology 04/29/23 Glenna Clemens MD [address] [place] [address] Consulting Physician Pain Management 06/05/24 documented as of this encounter
--- OUTSIDE RECORDS SUMMARY | 2024-10-16 01:52 | XMS_ITS | Encounter Summary ---
Author Organization [facility] Healthcare Address [address] [place] [address] Care Team Providers Care Aircraft Design Engineer Name Role Phone Steve Arceo MD Primary Care Provider [phone] John Saenz MD Unavailable Allie Urban MD Unavailable [phone] Glenna Clemens MD Unavailable Encounter Details Date Type Department Care Team (Late st Contact Info) Description 06/10/2020 Telephone [facility] - Imaging [address] [place] [address] Transcribed Order, Provider Social History Tobacco Use Types Packs/Day Years Used Date Smoking Tobacco: Never Smokeless Tobacco: Never Alcohol Use Standard Drinks/Week Comments Yes 1 (1 standard drink = 0.6 oz pur e alcohol) rarely Comments No Sex and Gender Information Value Date Recorded Sex Assigned at Not on file Legal Sex Female 1:35 AM OPEN END SPINNING OPERATOR Gender Identity Not on file Sexual Orientation Not on file 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 on file Not on le documented as of this encounter Plan of Treatment Upcoming Encounters Date Type Department Care Team (Latest Contact Info) Description 11/02/2024 7:30 AM OPEN END SPINNING OPERATOR Hospital Encounter [facility] Operating Room [address] [place] [address] Ancelmo Milligan MD [address] [place] [address] 11/02/2024 7:30 AM OPEN END SPINNING OPERATOR - 11/02/2024 12:55 PM OPEN END SPINNING OPERATOR Surgery [facility] Operating Room [address] [place] [address] Ancelmo Milligan MD [address] [place] [address] FUSION CERVICAL/THORACIC - POSTERIOR WITH INSTRUMENTATION C4-T1 posterior fusion with bilateral C4-5 and C7-T1 foraminotomies Scheduled Procedures Name Priority Associated Diagnoses Date/Ti me FUSION CERVICAL/THORACIC - POSTERIOR WITH INSTRUMENTATION Cervical myelopathy (HCC) 11/02/2024 7:30 AM OPEN END SPINNING OPERATOR FORAMINOTOMY CERVICAL - POSTERIOR Cervical myelopathy (HCC) 11/02/2024 7:30 AM OPEN END SPINNING OPERATOR SPINAL CORD MONITORING Cervical myelopathy (HCC) 11/02/2024 7:30 AM OPEN END SPINNING OPERATOR documented as of this encounter Visit Diagnoses [...] COVID: Suspected 09/13/2021 09/13/2021 09/13/2021 11:44 AM OPEN END SPINNING OPERATOR COVID: Suspected 09/24/2021 09/24/2021 09/24/2021 6:34 PM OPEN END SPINNING OPERATOR COVID: Suspected 09/24/2021 09/24/2021 09/25/2021 8:06 AM OPEN END SPINNING OPERATOR COVID19 09/24/2021 09/24/2021 10/08/2021 3:05 AM OPEN END SPINNING OPERATOR COVID: Recovered Comment:Added based on recent COVID infection. 10/08/2021 10/11/2021 02/05/2022 3:05 AM C DT COVID: Suspected 06/18/2022 06/18/2022 06/18/2022 3:37 PM CDT COVID19 06/18/2022 06/18/2022 06/28/2022 3:05 AM CDT COVID: Recovered Comment:Added based on recent COVID infection. 06/28/2022 07/23/2022 09/26/2022 3:[address] COVID: Suspected 09/09/2023 09/09/2023 09/09/2023 8:31 PM OPEN END SPINNING OPERATOR documented as of this encounter Care Teams Aircraft Design Engineer Relationship Specialty Start Date End Date Steve Arceo MD PCP - General 08/23/10 John Saenz MD [address] [facility] [phone] [place] [address] Consulting Physician General Surgery 04/15/23 Allie Urban MD [address] [place] [address] Plate Finisher Gastroenterology 04/29/23 Glenna Clemens MD [address] [place] [address] Consulting Physician Pain Management 06/05/24 documented as of this encounter
--- OUTSIDE RECORDS SUMMARY | 2024-10-16 01:52 | XMS_ITS | Encounter Summary ---
Author Organization [facility] Address [address] [place] [address] Phone Care Team Providers Care Appeals Officer Name Role Phone Steve Arceo MD Primary Care Provider [phone] John Saenz MD Unavailable [phone] Allie Urban MD Unavailable [phone] Glenna Clemens MD Unavailable [phone] Encounter Details Date Type Department Care Team (Latest Contact Info) Description 11/07/2023 Orders Only [facility] Scanning, Provider Social History Tobacco Use Types Packs/Day Years Used Date Smoking Tobacco: Never Smokeless Tobacco: Never Alcohol Use Standard Drinks/Week Comments Yes 1 (1 standard drink = 0.6 oz pur e alcohol) rarely AUDIT-C Answer Date Recorded Q1: How often do you have a drink containing alcohol? Never 07/03/2023 Q2: How many drinks containi ng alcohol do you have on a typical day when you are drinking? Patient does not drink Q3: How often do you have si x or more drinks on one occasion? 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 on file Not on fi le documented as of this encounter Plan of Treatment Upcoming Encounters Date Type Department Care Team (Latest Contact Info) Description 11/02/2024 7:30 AM ROSS CARRIER DRIVER Hospital Encounter [facility] Operating Room 1 [place] [address] Ancelmo Milligan MD [address] [place] [address] 11/02/2024 7:30 AM ROSS CARRIER DRIVER - 11/02/2024 12:55 PM ROSS CARRIER DRIVER Surgery [facility] Operating Room 1 [place] [phone] Ancelmo Milligan MD [address] [place] [address] FUSION CERVICAL/THORACIC - POSTERIOR WITH INSTRUMENTATION C4-T1 posterior fusion with bilateral C4-5 and C7-T1 foraminotomies Scheduled Procedures Name Priority Associated Diagnoses Date/Ti me FUSION CERVICAL/THORACIC - POSTERIOR WITH INSTRUMENTATION Cervical myelopathy (HCC) 11/02/2024 7:30 AM ROSS CARRIER DRIVER FORAMINOTOMY CERVICAL - POSTERIOR Cervical myelopathy (HCC) 11/02/2024 7:30 AM ROSS CARRIER DRIVER SPINAL CORD MONITORING Cervical myelopathy (HCC) 11/02/2024 7:30 AM ROSS CARRIER DRIVER documented as of this encounter Procedures Procedure Name Priority Date/Time Associated Diagnosis Comments SCAN - RADIOLOGY/IMAGING 11/07/2023 documented in this encounter Results * SCAN - RADIOLOGY/IMAGING (11/07/2023) Anatomical Region Laterality Modality Other us Provider Scanning Final Result documented in this encounter Visit Diagnoses Not on filedocumented in this encounter Care Teams Appeals Officer Relationship Specialty Start Date End Date Steve Arceo MD PCP - General 08/23/10 John Saenz MD [id number] [place] [address] Consulting Physician General Surgery 04/15/23 Allie Urban MD [address] [place] [address] Leather Toggler Gastroenterology 04/29/23 Glenna Clemens MD [address] [place] [address] Consulting Physician Pain Management 06/05/24 documented as of this encounter
--- OUTSIDE RECORDS SUMMARY | 2024-10-16 01:52 | XMS_ITS | Encounter Summary ---
Author Organization [facility] Address [address] [place] [address] Care Team Providers Care Ground Crew Lines Person Name Role Phone Steve Arceo MD Primary Care Provider [phone] John Saenz MD Unavailable [phone] Allie Urban MD Unavailable Glenna Clemens MD Unavailable [phone] Encounter Details Date Type Department Care Team (Late st Contact Info) Description 07/28/2021 Treatment [facility] PATHOLOGY [address] [place] [address] Quyen He, DO [address] [facility] [phone] [place] [address] Social History Tobacco Use Types Packs/Day Years Used Date Smoking Tobacco: Never Smokeless Tobacco: Never Alcohol Use Standard Drinks/Week Comments Yes 1 (1 standard drink = 0.6 oz pur e alcohol) rarely AUDIT-C Answer Date Recorded Q1: How often do you have a drink containing alc ohol? 2-4 times a month 07/27/2021 Q2: How many drinks containi ng alcohol do you have on a typical day when you are drinking? 1 or 2 07/27/2021 Q3: How often do you have si x or more drinks on one occasion? 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 Per chart review there is no history of previous transfusion. She is noted to have 4 children. Testing Information: The antibody screen was positive. Antibody identification demonstrated antibodies against the E antigen in the patient???s plasma. Additional testing was performed. Phenotyping showed that the patient's red blood cells are E antigen negative. All other common, clinically significant antibodies have been ruled out. Clinical Relevance: Anti-E antibodies have been implicated in hemolytic transfusion reactions with extravascular hemolysis and hemolytic disease of the fetus and .Therefore, anti-E antibodies are generally considered to be clinically significant. Presence of this antibody requires that additional testing be performed and this may result in additional time for blood product selection when ordered for transfusion. Therapeutic Relevance: ABO/Rh and crossmatch compatible red blood cell units negative for the E antigen will be provided for future transfusions. Approximately 71% ABO/Rh compatible units from the donor population are expected to be compatible. Approximately 1-2 units will need to be screened to find one compatible unit for this patient. Contact Information: Please contact the [facility] Blood Bank with any questions. This report has been prepared by: Quyen He DO Cosigned by Arash Wynne Jr., MD PhD at 07/28/2021 3:07 PM CDT Associated attestation - Arash Wynne Jr., MD PhD - 07/28/2021 3:07 PM CDT Attestation: I have personally reviewed the antibody result and agree with the interpretation contained in this written blood bank report. Arash Wynne MD PhD documented in this encounter Plan of Treatment Upcoming Encounters Date Type Department Care Team (Latest Contact Info) Description 11/02/2024 7:30 AM FILTERER Hospital Encounter [facility] Operating Room 1 [place] [address] Ancelmo Milligan MD [address] [place] [address] 11/02/2024 7:30 AM FILTERER - 11/02/2024 12:55 PM FILTERER Surgery [facility] Operating Room 1 [place] [address] Ancelmo Milligan MD [address] [place] [address] FUSION CERVICAL/THORACIC - POSTERIOR WITH INSTRUMENTATION C4-T1 posterior fusion with bilateral C4-5 and C7-T1 foraminotomies Scheduled Procedures Name Priority Associated Diagnoses Date/Ti me FUSION CERVICAL/THORACIC - POSTERIOR WITH INSTRUMENTATION Cervical myelopathy (HCC) 11/02/2024 7:30 AM FILTERER FORAMINOTOMY CERVICAL - POSTERIOR Cervical myelopathy (HCC) 11/02/2024 7:30 AM FILTERER SPINAL CORD MONITORING Cervical myelopathy (HCC) 11/02/2024 7:30 AM FILTERER documented as of this encounter Visit Diagnoses Not on filedocumented in this encounter Additional Health Concerns Infection Onset Date Last Indicated Resolved Time COVID: Suspected 09/13/2021 09/13/2021 09/13/2021 11:44 AM FILTERER COVID: Suspected 09/24/2021 09/24/2021 09/24/2021 6:34 PM FILTERER COVID: Suspected 09/24/2021 09/24/2021 09/25/2021 8:06 AM FILTERER COVID19 09/24/2021 09/24/2021 10/08/2021 3:05 AM FILTERER COVID: Recovered Comment:Added based on recent COVID infection. 10/08/2021 10/11/2021 02/05/2022 3:05 AM C DT COVID: Suspected 06/18/2022 06/18/2022 06/18/2022 3:37 PM CDT COVID19 06/18/2022 06/18/2022 06/28/2022 3:05 AM CDT COVID: Recovered Comment:Added based on recent COVID infection. 06/28/2022 07/23/2022 09/26/2022 3:05 AM FILTERER COVID: Suspected 09/09/2023 09/09/2023 09/09/2023 8:31 PM FILTERER documented as of this encounter Care Teams Ground Crew Lines Person Relationship Specialty Start Date End Date Steve Arceo MD PCP - General 08/23/10 John Saenz MD [address] [facility] [place] [place] [phone] [place] [address] Consulting Physician General Surgery 04/15/23 Allie Urban MD [address] [place] [address] Steward/Stewardess Deck Gastroenterology 04/29/23 Glenna Clemens MD [address] [place] [address] Consulting Physician Pain Management 06/05/24 documented as of this encounter
--- OUTSIDE RECORDS SUMMARY | 2024-10-16 01:52 | XMS_ITS | Encounter Summary ---
Author Organization [facility] Address [address] [place] [address] Phone Care Team Providers Care Quality Improvement Coordinator Name Role Phone Steve Arceo MD Primary Care Provider [phone] John Saenz MD Unavailable [phone] Allie Urban MD Unavailable [phone] Glenna Clemens MD Unavailable [phone] Encounter Details Date Type Department Care Team (Late st Contact Info) Description 10/05/2024 Telephone [facility] Cardiology [address] [facility] Advanced Medicine 8th [place] [address] [place] [address] Eileen Galloway Social History Tobacco Use Types Packs/Day Years [...] on file Legal Sex Female 1:35 AM GAS LINE INSTALLER SUPERVISOR Gender Identity Not on file Sexual Orientation Not on file 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 LINE INSTALLER SUPERVISOR * Telephone Encounter - Na Wiggins - 10/14/2024 2:19 PM CST Faxed stat request for records to [facility]. F: [phone] LINE INSTALLER SUPERVISOR * Telephone Encounter - Eileen Galloway - 10/05/2024 9:43 AM CST Diagnosis/Reason for Appointment: Palpitations Hypertension Referring Physician: Ref Ph: If Referring MD is not PCP, list specialty: Triage Questions Yes No Who/Where/When/Notes Have you ever been diagnosed with cancer, or undergone cancer treatments? [] [x] If 'Yes', Schedulefirst available with Cardio-Oncology If yes where were you treated? Have you ever seen a Artificial Breeding Technician in an office setting? [x] [] Dr. Daniel Allan/Will 2013 IF SCHEDULING PATIENT WITH MATERNAL Have you had a baby in the last year or are you ? (If yes send to Dr. Kendall for review) [] [] Have you had heart or blood pressure problems during a previous ? (If yes send to Dr. Kendall for review) [] [] Dr. Eileen oMnroy Patients only: Are you a hemodialysis or peritoneal dialysis patient? (If yes then patient must be referred from another MD, DO NOT SCHEDULE) [] [] Do you regularly exercise, or play any competitive or recreational sports? (If yes proceed to next question) [] [x] Are your symptoms or concerns associated with this exercise or activity? (If yes schedule in [facility]) [] [x] Patient History Questions Yes No Where/When/Notes Have you EVER been hospitalized for ANY cardiac issue? [] [x] Have you ever had any cardiac testing, imaging, or procedures? (Testing - echo, EKG, stress) (Imaging - Cardiac MRI, CT or calcium scoring) (Procedure - Ablation, Cardioversion, CABG, Cath) [x] [] 12/2013 ECHO In [facility]/[place] 10/17 EKG [facility]/[place], [place] 08/16 MRI [facility], [place], [place] Have you ever had a sleep study? [] [x] Do you have a device? If yes what type? (Pacemaker, Defibrillator, Implanted Loop Recorder) [] [x] If yes, where and when was device put in? Media/Instructional Designer? ([employer], [employer], [employer]) Appointment Date: 10/15/24 Provider: Catherine Location: [facility] [x] Confirm appt date, time, provider and location. [x] Advise pt to arrive 15- 20 min early. [x] Advise patient to bring medications/list, photo ID and insurance card [x] Advise of New PatientPacket being mailed to them. LINE INSTALLER SUPERVISOR documented in this encounter Plan of Treatment Upcoming Encounters Date Type Department Care Team (Latest Contact Info) Description 11/02/2024 7:30 AM GAS LINE INSTALLER SUPERVISOR Hospital Encounter [facility] Operating Room 1 [place] [address] Ancelmo Milligan MD [address] [place] [address] 11/02/2024 7:30 AM GAS LINE INSTALLER SUPERVISOR - 11/02/2024 12:55 PM GAS LINE INSTALLER SUPERVISOR Surgery [facility] Operating Room [address] [place] [address] Ancelmo Milligan MD [address] [place] [address] FUSION CERVICAL/THORACIC - POSTERIOR WITH INSTRUMENTATION C4-T1 posterior fusion with bilateral C4-5 and C7-T1 foraminotomies Scheduled Procedures Name Priority Associated Diagnoses Date/Ti me FUSION CERVICAL/THORACIC - POSTERIOR WITH INSTRUMENTATION Cervical myelopathy (HCC) 11/02/2024 7:30 AM GAS LINE INSTALLER SUPERVISOR FORAMINOTOMY CERVICAL - POSTERIOR Cervical myelopathy (HCC) 11/02/2024 7:30 AM GAS LINE INSTALLER SUPERVISOR SPINAL CORD MONITORING Cervical myelopathy (HCC) 11/02/2024 7:30 AM GAS LINE INSTALLER SUPERVISOR documented as of this encounter Goals Goal Patient Goal Type Associated Problems Recent Progress Patient-Stated? Author CCM Chronic Pain Care Plan Chronic Care Management On track(2023 2:01 PM GAS LINE INSTALLER SUPERVISOR) Glenna Vann, RN Note: Problem: Chronic Pain Goals: 1. Minimize further functional decline 2. Maximize quality of life 3. Control pain Strategies: - Activity/exercise program recommendation - Conservative stepwise pain medicine strategy with multi-disciplinary approach - Recommend healthy lifestyle strategies and compensatory methods as needed documented as of this encounter Visit Diagnoses Not on filedocumented in this encounter Care Teams Quality Improvement Coordinator Relationship Specialty Start Date End Date Stvee Arceo MD PCP - General 08/23/10 John Saenz MD [phone] [place] [address] Consulting Physician General Surgery 04/15/23 Allie Urban MD [address] [place] [address] Manager Green Gastroenterology 04/29/23 Glenna Clemens MD [address] [place] [address] Consulting Physician Pain Management 06/05/24 documented as of this encounter
--- OUTSIDE RECORDS SUMMARY | 2024-10-16 01:52 | XMS_ITS | Referral Summary ---
Author Organization [facility] Address [address] [place] [address] Care Team Providers Care Linotype Mechanic Name Role Phone Steve Arceo MD Primary Care Provider [phone] John Saenz MD Unavailable [phone] Allie Urban MD Unavailable Glenna Clemens MD Unavailable Encounters Date Type Department Care Team Description 10/15/2024 3:50 PM MARBLE MECHANIC HELPER Lab [facility] [address] [place] [address] Primary hypertension 10/15/2024 3:15 PM MARBLE MECHANIC HELPER Ancillary Procedure [facility] [address] [place] [address] [address] [place] [phone] Palpitations 10/15/2024 2:30 PM MARBLE MECHANIC HELPER Office Visit [facility] Cardiology [address] [place] [address] Medical Office Building 3 [address] [place] [address] Carlo Alexander MD Palpitations (Primary Dx); Primary hypertension; Hyperlipidemia, unspecified hyperlipidemia type; Amaurosis fugax of right eye 10/15/2024 7:08 AM MARBLE MECHANIC HELPER - 10/15/2024 11:59 PM MARBLE MECHANIC HELPER Hospital Encounter [facility] Radiology [address] [place] [address] Left leg weakness; Cervical spinal stenosis; Lumbar stenosis with neurogenic claudication; Levoscoliosis of lumbar spine Discharge Disposition: Discharge to home or self care 10/15/2024 8:42 AM MARBLE MECHANIC HELPER - 10/15/2024 11:59 PM MARBLE MECHANIC HELPER Hospital Encounter [facility] Rad[facility] [address] [place] [address] Ancelmo Milligan MD Cervical spinal stenosis Discharge Disposition: Discharge to home or self care 10/07/2024 Orders Only [facility] Health Information Management 1 [place] [address] Scanning, Provider 10/07/2024 Telephone [facility] Ophthalmology [facility] 6th [place] [phone] Kraig Haddad MD 10/05/2024 Telephone [facility] Cardiology [facility] 8th [place] [address] [place] [address] Eileen Galloway 10/04/2024 Orders Only [facility] CARDIOLOGY Scanning, Provider 10/04/2024 6:45 PM MARBLE MECHANIC HELPER Office Visit [facility] Care at [address] [address] Americo Martinez NP Irregular heart beat (Primary Dx) 09/09/2024 8:20 AM MARBLE MECHANIC HELPER Procedure visit [facility] Neurological Testing [address] [facility] 6th [place] [address] [place] [address] Fasciculation of lower extremity 09/03/2024 Orders Only [facility] Neurosurgery [address] [facility] 6th [place] [address] [place] [address] Ancelmo Milligan MD Cervical spinal stenosis (Primary Dx) 09/03/2024 1:40 PM MARBLE MECHANIC HELPER Telemedicine [facility] Neurosurgery [address] [facility] Medical Office Building 4 [address] [place] [phone] Mu Clinton PA Left leg weakness (Primary Dx); Cervical spinal stenosis; Lumbar stenosis with neurogenic claudication; Levoscoliosis of lumbar spine 08/24/2024 Orders Only [facility] Neurosurgery [address] [facility] 6th [place] [address] [place] [address] Ancelmo Milligan MD 08/19/2024 Telephone [facility] Neurosurgery [address] [facility] Office Building [address] [place] [phone] Ancelmo Milligan MD 08/19/2024 8:40 AM MARBLE MECHANIC HELPER Office Visit [facility] Neurosurgery [address] [facility] Office Building [address] [place] [phone] Mu Clinton PA Left leg weakness (Primary Dx); Cervical spinal stenosis; Lumbar stenosis with neurogenic claudication; Levoscoliosis of lumbar spine 08/18/2024 6:52 PM MARBLE MECHANIC HELPER - 08/18/2024 11:59 PM MARBLE MECHANIC HELPER Hospital Encounter [facility] Radiology [facility] ([facility]) [address] [place] [address] Discharge Disposition: Discharge to home or self care 08/18/2024 6:51 PM MARBLE MECHANIC HELPER - 08/18/2024 11:59 PM MARBLE MECHANIC HELPER Hospital Encounter [facility] Radiology [facility] ([facility]) [address] [place] [address] Discharge Disposition: Discharge to home or self care 08/12/2024 Telephone [facility] Neurosurgery [address] [facility] Medical Office Building [address] [place] [phone] Ulises Delgadillo NP 08/05/2024 1:45 PM MARBLE MECHANIC HELPER - 08/05/2024 11:59 PM MARBLE MECHANIC HELPER Hospital Encounter [facility] Pain Center at [address] [place] [phone] Glenna Clemens MD Lumbar radiculopathy Discharge Disposition: Discharge to home or self care 07/31/2024 8:00 AM MARBLE MECHANIC HELPER - 07/31/2024 11:59 PM MARBLE MECHANIC HELPER Hospital Encounter [facility] Pain Center at [address] [place] [phone] Glenna Clemens MD Herniated nucleus pulposus, L4-5 (Primary Dx); Lumbar radiculopathy; Chronic bilateral low back pain, unspecified whether sciatica present; Fasciculation of lower extremity; Vertebrogenic pain Discharge Disposition: Discharge to home or self care 07/29/2024 11:12 AM MARBLE MECHANIC HELPER - 07/29/2024 11:59 PM MARBLE MECHANIC HELPER Hospital Encounter [facility] [address] [place] [address] [address] [place] [phone] Lumbar stenosis with neurogenic claudication Discharge Disposition: Discharge to home or self care 07/29/2024 Telephone [facility] Pain Center at [address] [phone] Ani Winston RN Pre Arrival 07/29/2024 Telephone [facility] Neurosurgery [address] [place] [address] Office [facility] [address] [place] [address] Ancelmo Milligan MD 07/29/2024 11:15 AM MARBLE MECHANIC HELPER Office Visit [facility] Neurosurgery [address] [place] [address] Office [facility] [address] [place] [address] Ancelmo Milligan MD Lumbar stenosis with neurogenic claudication (Primary Dx) 07/27/2024 Orders Only [facility] Neurosurgery [address] [place] [address] Office [facility] [address] [place] [address] Ancelmo Milligan MD Lumbar stenosis with neurogenic claudication (Primary Dx) 07/21/2024 Telephone [facility] Pain [address] [address] Glenna Clemens MD pt call 07/20/[address] [phone] Glenna Clemens MD Peer to Peer Requested 07/16/[address] [address] Glenna Clemens MD Scheduling Appointments from Last 3 Months Allergies Active Allergy Reactions Criticality Noted Date [...] (03/23/2021): Added automatically from request for surgery [id number] Abnormal finding on GI tract imaging 12/01/2020 Overview (12/01/2020): Added automatically from request for surgery [id number] Diverticulitis 05/26/2020 Overview (05/26/2020): Added automatically from request for surgery [id number] 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 Significant photophobia, out of proportion to findings on exam. AC quiet. Start maxitrol, 1gtt, OD, qid. D/c CL wear for now. F/u in 1 week at [facility] with Dr. Carlos. Recommended pt be refit [...] (04/08/2018): Added automatically from request for surgery [id number] Inflammation of stomach present on endoscopy Overview (04/08/2018): Added automatically from request for surgery [id number] Change in bowel habits 01/15/2018 Dysphagia 01/15/2018 Sensorineural hearing loss (SNHL) of both ears 0 11/22/2017 Assessment & Plan (11/22/2017 7:29 PM MARBLE MECHANIC HELPER): Has associated tinnitus. No hearing aids. Negative MRI 07/10/2015 Cervical spinal stenosis 11/22/2017 Assessment & Plan (11/22/2017 7:50 PM MARBLE MECHANIC HELPER): C5-6 level. Neurosurgery ( Dr. Reis) texted. Dilaudid, Ativan, Reglan, Zofran Continues symptomatic relief. No signs of weakness on physical exam. Dr. Reis has responded and will see the patient in the morning. Photophobia of both eyes 11/22/2017 Assessment & Plan (11/22/2017 7:50 PM MARBLE MECHANIC HELPER): Minimize light in her room. She does not usually have migraine headaches. Diverticulitis of colon 12/19/2016 Subjective tinnitus 06/20/2015 Fecal incontinence 12/21/2013 Incontinence 12/21/2013 Myofascial pain 12/21/2013 Angioma 11/04/2013 Seborrheic keratoses 11/04/2013 Low back pain 03/05/2013 Ganglion of joint 11/23/2011 Arthralgia of wrist 11/22/2011 Knee pain 02/01/2011 Acute neck pain Nausea Immunizations Name Administration Dates Next Due Influenza, Trivalent, IM (MDV) 06/23/2017 Influenza, Unspecified 06/23/2020 Pfizer SARS-CoV-2 Monovalent Vaccination (12+ Yrs) PURPLE 11/07/2020,10/18/2020 ZOSTER LIVE 06/23/2015 Social History Tobacco Use Types Packs/Day Years [...] on file Legal Sex Female 1:35 AM MARBLE MECHANIC HELPER Gender Identity Not on file Sexual Orientation Not on file 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 on file Not on file Not on fi le Last Filed Vital Signs Vital Sign Reading Time Taken Comments Blood Pressure 144/84 10/15/2024 2:00 PM MARBLE MECHANIC HELPER Pulse 84 10/15/2024 2:00 PM MARBLE MECHANIC HELPER Temperature 36.8 ??C (98.3 ??F) 10/04/2024 5:55 PM CS T Respiratory Rate 16 08/05/2024 1:56 PM MARBLE MECHANIC HELPER Oxygen Saturation 95% 10/15/2024 2:00 PM MARBLE MECHANIC HELPER Inhaled Oxygen Concentration - - Weight 74 kg (163 lb 3.2 oz) 10/15/2024 2:00 PM MARBLE MECHANIC HELPER Height 162.6 cm (5' 4 ) 10/15/2024 2:00 PM MARBLE MECHANIC HELPER Body Mass Index 28.01 10/15/2024 2:00 PM MARBLE MECHANIC HELPER Plan of Treatment Upcoming Encounters Date Type Department Care Team (Latest Contact Info) Description 11/02/2024 7:30 AM MARBLE MECHANIC HELPER Hospital Encounter [facility] Operating Room [address] [place] [address] Ancelmo Milligan MD [address] [place] [address] 11/02/2024 7:30 AM MARBLE MECHANIC HELPER - 11/02/2024 12:55 PM MARBLE MECHANIC HELPER Surgery [facility] Operating Room [address] [place] [address] Ancelmo Milligan MD [address] [place] [address] FUSION CERVICAL/THORACIC - POSTERIOR WITH INSTRUMENTATION C4-T1 posterior fusion with bilateral C4-5 and C7-T1 foraminotomies Scheduled Procedures Name Priority Associated Diagnoses Date/Ti me FUSION CERVICAL/THORACIC - POSTERIOR WITH INSTRUMENTATION Cervical myelopathy (HCC) 11/02/2024 7:30 AM MARBLE MECHANIC HELPER FORAMINOTOMY CERVICAL - POSTERIOR Cervical myelopathy (HCC) 11/02/2024 7:30 AM MARBLE MECHANIC HELPER SPINAL CORD MONITORING Cervical myelopathy (HCC) 11/02/2024 7:30 AM MARBLE MECHANIC HELPER Goals Goal Patient Goal Type Associated Problems Recent Progress Patient-Stated? Author CCM Chronic Pain Care Plan Chronic Care Management On track(2023 2:01 PM MARBLE MECHANIC HELPER) No Glenna Wilson, RN Note: Problem: Chronic Pain Goals: 1. Minimize further functional decline 2. Maximize quality of life 3. Control pain Strategies: - Activity/exercise program recommendation - Conservative stepwise pain medicine strategy with multi-disciplinary approach - Recommend healthy lifestyle strategies and compensatory methods as needed Medical Devices Implanted Type Area Principal Database Developer Device Identifier Shelf Expiration Date Model / Serial / Lot [employer] [id number] Cage Spinal Cervical 14d X 16w X 9h 6 Degree - [id number] Implanted:Qty: 1 on 08/10/2021 by Jones Palacios MD at [facility] Cage N/A: Spine Cervical [employer] [id number] 02/06/2024 [id number] / / [id number] [employer] [id number] C-Demarcus Maxan 32mm Level 2 Fix Spine Cervical Anterior Plate Bone - [id number] Implanted:Qty: 1 on 08/10/2021 by Jones Palacios MD at [facility] Plate N/A: Spine Cervical [employer] [id number] / / [employer] [id number] Maxan 4mm 16mm Variable Angle Spine Screw Bone - [id number] Implanted:Qty: 6 on 08/10/2021 by Jones Palacios MD at [facility] Screw N/A: Spine Cervical [employer] [id number] / / [employer] 700-025 I Factor Allograft Putty Syringe Graft 2.5cc Bone - [id number] Implanted:Qty: 1 on 08/10/2021 by Jones Palacios MD at [facility] N/A: Spine Cervical [employer] 04/22/2024 700-025 / / [id number] [employer] [id number] Cage Spinal Cervical 12d X 14w X 8h 6 Degree - [id number] Implanted:Qty: 1 on 08/10/2021 by Jones Palacios MD at [facility] N/A: Spine Cervical [employer] [id number] 04/11/2025 [id number] / / [id number] Procedures Procedure Name Priority Date/Time Associated Diagnosis Comments LIPID PANEL Routine 10/15/2024 3:51 PM MARBLE MECHANIC HELPER Primary hypertension ECG 12-LEAD Routine 10/15/2024 2:01 PM MARBLE MECHANIC HELPER Palpitations Primary hypertension CT CERVICAL SPINE WO CONTRAST Schedule Routine, Read Routine (OP Routine) 10/15/2024 10:07 AM MARBLE MECHANIC HELPER Cervical spinal stenosis MRI CERVICAL SPINE WO CONTRAST Schedule Routine, Read Routine (OP Routine) 10/15/2024 8:16 AM MARBLE MECHANIC HELPER Cervical spinal stenosis MRI BRAIN WO CONTRAST Schedule Routine, Read Routine (OP Routine) 10/15/2024 8:16 AM MARBLE MECHANIC HELPER Left leg weakness Cervical spinal stenosis Lumbar stenosis with neurogenic claudication Levoscoliosis of lumbar spine SCAN - OTHER ORDERS 10/07/2024 CARDIOLOGY DOCUMENT SCAN 10/04/2024 SCAN - LABS 10/04/2024 SCAN - RADIOLOGY/IMAGING 10/04/2024 EMG/NCV Routine 09/09/2024 8:35 AM MARBLE MECHANIC HELPER Fasciculation of lower extremity NEURO MR OUTSIDE REFERENCE Routine 08/18/2024 6:52 PM MARBLE MECHANIC HELPER NEURO MR OUTSIDE REFERENCE Routine 08/18/2024 6:51 PM MARBLE MECHANIC HELPER PAIN MGMT IMAGING LUMBAR/CAUDAL EPIDURAL STEROID INJ Schedule Routine, Read Routine (OP Routine) 08/05/2024 2:51 PM MARBLE MECHANIC HELPER Lumbar radiculopathy PAIN MGMT IMAGING LUMBAR/CAUDAL EPIDURAL STEROID INJ Schedule Routine, Read Routine (OP Routine) 07/31/2024 9:29 AM MARBLE MECHANIC HELPER Lumbar radiculopathy XR SCOLIOSIS 6 OR MORE VIEWS Schedule Routine, Read Routine (OP Routine) 07/29/2024 11:30 AM MARBLE MECHANIC HELPER Lumbar stenosis with neurogenic claudication SCREENING MAMMOGRAM BILATERAL W JAYESH Schedule Routine, Read Routine (OP Routine) 10/10/2023 9:03 AM MARBLE MECHANIC HELPER Screening mammogram, encounter for COLONOSCOPY 12/26/2020 9:28 AM CDT from Last 3 Months or Most Recently Relevant to Health Maintenance Results * (ABNORMAL) Lipid panel (10/15/2024 3:51 PM MARBLE MECHANIC HELPER) Cholesterol 276(H) 30 - 199 mg/dL Comment: [...] mg/dL ??High: ?>160 mg/dL Calculated using the Perez LDL-C estimating equation. This equation was implemented on 2024. Prior to this date LDL-C was estimated using the Friedewald equation. Literature References: 1. Expert Panel on Integrated Guidelines for Cardiovascular Health and Risk Reduction in Children and Adolescents. Pediatrics 2011;128:S213 2. NCEP Expert Panel. Circulation 2004;110:227 3. Chris Mays et al. SILVA Cardiol. 2019January 21;5(5):540-548. doi: 10.1001/jamacardio.2020.0013 Current Interpretive Data was [...] 4 SUZETTE LOPEZ Blood 10/15/2024 3:51 PM MARBLE MECHANIC HELPER 10/15/2024 5:09 PM MARBLE MECHANIC HELPER Carlo Alexander MD LAB BLOOD ORDERABLES Final R esult SUZETTE RAYMONDWCH [address] [facility] [place] [address] * ECG 12 lead (10/15/2024 2:01 PM MARBLE MECHANIC HELPER) Carlo Alexander MD ECG ORDERABLES Edited Resul t - Final * CT Cervical Spine WO Contrast (10/15/2024 10:07 AM MARBLE MECHANIC HELPER) Anatomical Region Laterality Modality Spine N/A Computed Tomogra phy 10/15/2024 1:08 PM MARBLE MECHANIC HELPER Impressions 10/15/2024 4:35 PM MARBLE MECHANIC HELPER 1. Post surgical changes of anterior discectomy and fusion C5-C7 with intact hardware. 2. Moderate-severe degenerative changes of the cervical spine. Dictated by: Steven Michael M.D. The radiology attending physician has personally reviewed this study, and had reviewed and/or edited this written report and agrees with it. Electronically signed by: Yousif Neal M.D, PHD Narrative 10/15/2024 4:35 PM MARBLE MECHANIC HELPER EXAMINATION: CT of the cervical spine without [...] Yousif Neal M.D, PHD Ancelmo Milligan MD IM CT PROCEDURES Final Result * MRI Cervical Spine WO Contrast (10/15/2024 8:16 AM MARBLE MECHANIC HELPER) Anatomical Region Laterality Modality Spine N/A Magnetic Resonan ce 10/15/2024 10:4 7 AM MARBLE MECHANIC HELPER Impressions 10/15/2024 12:22 PM MARBLE MECHANIC HELPER 1. No acute intracranial abnormalities 2. Congenitally narrow spinal canal with superimposed degenerative changes of the spine. 3. Varying degrees of neural foraminal narrowing as detailed above. Dictated by: Rosanne Nunes D.O. The radiology attending physician has personally reviewed this study, and had reviewed and/or edited this written report and agrees with it. Electronically signed by: Tyler Álvarez MD Narrative 10/15/2024 12:22 PM MARBLE MECHANIC HELPER EXAMINATION: 1. Magnetic resonance imaging (MRI) of [...] by: Tyler Álvarez MD Ancelmo Milligan MD [facility] MRI PROCEDURES Final Result * MRI Brain WO Contrast (10/15/2024 8:16 AM MARBLE MECHANIC HELPER) Anatomical Region Laterality Modality Head and Neck N/A Magnetic Resonan ce 10/15/2024 10:4 7 AM MARBLE MECHANIC HELPER Impressions 10/15/2024 12:22 PM MARBLE MECHANIC HELPER 1. No acute intracranial abnormalities 2. Congenitally narrow spinal canal with superimposed degenerative changes of the spine. 3. Varying degrees of neural foraminal narrowing as detailed above. Dictated by: Rosanne Nunes D.O. The radiology attending physician has personally reviewed this study, and had reviewed and/or edited this written report and agrees with it. Electronically signed by: Tyler Álvarez MD Narrative 10/15/2024 12:22 PM MARBLE MECHANIC HELPER EXAMINATION: 1. Magnetic resonance imaging (MRI) of [...] by: Tyler Álvarez MD us Mu ANNA IMJani MRI PROCEDURES Final Result * SCAN - OTHER ORDERS (10/07/2024) us Provider Scanning Final Result * SCAN - RADIOLOGY/IMAGING (10/04/2024) Anatomical Region Laterality Modality Other us Provider Scanning Final Result * SCAN - LABS (10/04/2024) us Provider Scanning Final Result * Cardiology Document Scan (10/04/2024) Anatomical Region Laterality Modality Other Provider Scanning CV CARDIAC SERVICES PROCEDURES Final Result * EMG/NCV (09/09/2024 8:35 AM MARBLE MECHANIC HELPER) Anatomical Region Laterality Modality Other Narrative 09/09/2024 8:35 AM MARBLE MECHANIC HELPER Benjamin Dorantes MD ? 09/09/2024 10:46 AM EMG/NCV - Date/Time: 09/09/2024 8:35 AM Performed by: Benjamin Dorantes MD Authorized by: Glenna Clemens MD ?? Result [facility] Glenna Clemens MD NEUROLOGY ORDERABLES Final Result * Neuro MR Outside Reference (08/18/2024 6:52 PM MARBLE MECHANIC HELPER) Impressions RAD_PACS_[facility] - 08/18/2024 6:52 PM MARBLE MECHANIC HELPER These images are for Reference purposes only and have not been reviewed by [facility] Radiology. ??There will be no report generated by a [facility] Radiologist. Narrative RAD_PACS_[facility] - 08/18/2024 6:52 PM MARBLE MECHANIC HELPER EXAMINATION: ??Images For Reference Purposes Only Ancelmo Milligan MD IMG MRI PROCEDURES Final Result Performing Organization Address [facility] de Phone Number [email or web address] * Neuro MR Outside Reference (08/18/2024 6:51 PM MARBLE MECHANIC HELPER) Impressions [facility] - 08/18/2024 6:51 PM MARBLE MECHANIC HELPER These images are for Reference purposes only and have not been reviewed by [facility] Radiology. ??There will be no report generated by a [facility] Radiologist. Narrative RAD_P[facility] - 08/18/2024 6:51 PM MARBLE MECHANIC HELPER EXAMINATION: ??Images For Reference Purposes Only Result [facility] Ancelmo Milligan MD IMG MRI PROCEDURES Final Result Performing Organization Address [facility] Phone Number [email or web address] * Imaging Lumbar/Caudal Epidural Steroid INJ ([id number]) (08/05/2024 2:51 PM MARBLE MECHANIC HELPER) Narrative [facility] - 08/05/2024 2:51 PM MARBLE MECHANIC HELPER The images from this study are not interpreted by Radiology. ??Please refer to the physician's procedure / OR operative note. Glenna Clemens MD [facility] PAIN MGMT PROCEDURES Fi nal Result Performing Organization Address [facility] Phone Number RAD_PACS_[facility] * Imaging Lumbar/Caudal Epidural Steroid INJ ([id number]) (07/31/2024 9:29 AM MARBLE MECHANIC HELPER) Narrative [facility] - 07/31/2024 9:33 AM MARBLE MECHANIC HELPER The images from this study are not interpreted by Radiology. ??Please refer to the physician's procedure / OR operative note. Glenna Clemens MD [facility] PAIN MGMT PROCEDURES Fi nal Result Performing Organization Address [facility] Phone Number [email or web address] * XR Scoliosis 6 or More Views (07/29/2024 11:30 AM MARBLE MECHANIC HELPER) Anatomical Region Laterality Modality Spine N/A Computed Radiogr aphy 07/29/2024 12:2 9 PM MARBLE MECHANIC HELPER Impressions 07/29/2024 12:29 PM MARBLE MECHANIC HELPER 1. ??Unchanged mild lumbar levoscoliosis with severe degenerative disc changes L2-L5. 2. ??Moderate to severe lower lumbar facet arthropathy. Electronically signed by: Steve Snyder D.O. Narrative 07/29/2024 12:29 PM MARBLE MECHANIC HELPER EXAMINATION: XR SCOLIOSIS 6 OR MORE VIEWS [...] anterior fusion, intact hardware. Procedure Note Steve Snyder DO - 07/29/2024 EXAMINATION: XR SCOLIOSIS 6 OR [...] Mammogram Bilateral W Jayesh (10/10/2023 9:03 AM MARBLE MECHANIC HELPER) Anatomical Region Laterality Modality Breast Bilateral Mammography Narrative 10/10/2023 1:33 PM MARBLE MECHANIC HELPER Mammogram Technique: Bilateral Digital Breast Tomosynthesis, Bilateral C-view 2D Screening mammogram. ??Views obtained: ??bilateral craniocaudal and bilateral mediolateral oblique. ??Computer Aided Detection was performed. Mammogram Findings: The present examination has been compared to prior imaging studies performed at [facility] on 07/28/2019, 11/25/2020 and 04/10/2022. The breasts [...] compared to prior imaging studies performed at [facility] on 07/28/2019, 11/25/2020 and 04/10/2022. The breasts [...] Female Attending MD: Allie Urban M.D. Room: [facility] ROOM 01 Note Status: Finalized Procedure: Colonoscopy [...] The scope was passed under direct vision.The [id number] was introduced through the anusand advanced to [...] During normal business hours - [facility] [place]: [phone] After hours, evening, nights, weekends and holidays- Please call the hospital feed crusher operator at and ask for the GI fellow sap basis consultant. Electronically by Dr Allie Urban lAlie Urban M.D. 12/26/2020 9:52:12 AM Number of Addenda: 0 Note Initiated On: 12/26/2020 9:28 AM Allie Urban MD ENDOSCOPY PROCEDURES Final Result from Last 3 Months or Most Recently Relevant to Health Maintenance Insurance AnonymAsk [facility] AnonymAsk OPEN ACCESS [facility] [id number] [facility] [id number] [facility] [id number] Advance Directives For more information, please contact: [phone] * Full Code (Latest Code Status on [...] 8:21 AM 04/02/2018 1:40 PM Care Teams Linotype Mechanic Relationship Specialty Start Date End Date Steve Arceo MD PCP - General 08/23/10 John Saenz MD [address] [facility] [place] [phone] [place] [address] Consulting Physician General Surgery 04/15/23 Allie Urban MD [address] [place] [address] [facility] 04/29/23 Glenna Clemens MD [address] [place] [place] [address] Consulting Physician Pain Management 06/05/24
== END 2024-10-14 14:14 | disposition home or self-care (01) ==
PROVIDERS: PCP Family Medicine; Visit Provider Family Medicine
DX: G45.3 Amaurosis fugax (principal)
CPT/HCPCS: 70496; 70498; Q9967

== ENCOUNTER 2025-05-14 10:00 | Outpatient (RCR) | payer OTHER, SELFPAY ==
--- NOTE | 2025-03-23 14:21 | OPREHPOC ---
Outpatient Therapy Plan of Care This is a Multidisciplinary Plan of Care that may contain components documented by all disciplines (PT, OT, and ST.) PT Problem 1 PT Problem #1 Knowledge Deficit PT Goal 1 Goal / Goal Update Patient to demonstrate independence with HEP for improved self-reliance of symptom management. Target Visit 4 PT Problem 2 PT Problem #2 Pain PT Goal 1 Goal / Goal Update Patient to decrease subjective reports of pain to <4/10 for improved ADL tolerance. Target Visit 4 PT Problem 3 PT Problem #3 Impaired Range of Motion PT Goal 1 Goal / Goal Update 1. Patient to demonstrate an increase of cervical ext AROM to 40 degrees to improve the ability to drink from a cup. 2. Patient to demonstrate an increase of cervical rotation Chi AROM to >=40 degrees to improve safety with driving. Target Visit 4 PT Problem 4 PT Problem #4 Impaired Strength PT Goal 1 Goal / Goal Update Patient to demonstrate Chi shoulder strength >=4/5 for improved functional stability required for ADLs. Target Visit 4 PT Problem 5 PT Problem #5 Impaired Functional ADLs PT Goal 1 Goal / Goal Update The patient will have a 10 point improvement on the NDI for decreased handicap due to neck pain. Target Visit 4
--- NOTE | 2025-03-23 14:21 | PTOPEVAL1 ---
Assessment and note entered by Savanah Adhikari PT Evaluation Information Assessment Status Evaluation Diagnosis s/p cervical arthrodesis ICD-10 Condition Codes (PT) Encounter for other orthopedic aftercare Z47.89 Subjective Information Pt presents s/p cervical discectomy of C4-5 and C7 -T1 on 02/19/25. She also had a removal of previous fusion plate at C5-7. Pt reports no complications with surgery. She reports the surgery took away the radiation pain down her R arm as well as the numbness and tingling. Pt needs to get back to work, ADLS and IADLS. Pt is currently sleeping in bed, has to take Flexural to sleep. Pt has been wearing a cervical collar for 3 weeks after surgery when moving around. Her biggest complaint is neck stiffness, spasms and a burning sensation under her shoulder blade. She also has a hoarse voice from the surgery. Reported Pain Level Pain Score 4: Self Report Assessment PT Clinical Summary Pt is a 64 year old female who presents to physical therapy with signs and symptoms consistent with post op status following cervical arthrodesis on 02/19/25. Pt demonstrates weakness, pain, decreased mobility, abnormal posture, increased tissue tension and trigger points that limit their ability to perform ADLs. Pt will benefit from skilled physical therapy to address the above listed deficits and return to PLOF. HEP instructed and written handout provided, EX tolerated well with no adverse effects to note post-session. Pt was educated on importance of adherence to HEP. Pt was also educated on anatomy, prognosis, home modalities, and PT POC. Plan of Care Interventions Electrical Stimulation,Gait Training,Hot Pack/Cold Pack,Manual Therapy,Neuro Re-education, Therapeutic Activities,Therapeutic Exercise PT Services Indicated Yes Treatment Frequency and 2x/wk for 4 sessions Duration These treatments will address the objective and functional deficits as defined above. The patient will be advanced safely and appropriately in order for the patient to progress towards his/her prior level of function. Additional exercises will be introduced and as well as a comprehensive home exercise program upon discharge, if needed, ?to ensure carryover of functional gains achieved in the clinic. This treatment plan has been reviewed and agreement upon by the patient.
--- NOTE | 2025-04-08 09:47 | OPREHPOC ---
Outpatient Therapy Plan of Care This is a Multidisciplinary Plan of Care that may contain components documented by all disciplines (PT, OT, and ST.) PT Problem 1 PT Problem #1 Knowledge Deficit PT Goal 1 Goal / Goal Update Patient to demonstrate independence with HEP for improved self-reliance of symptom management. Target Visit 4 Progress Met PT Problem 2 PT Problem #2 Pain PT Goal 1 Goal / Goal Update Patient to decrease subjective reports of pain to <4/10 for improved ADL tolerance. (04/08/25 progressing, 7/10 at worst) Target Visit 4 Progress Partially Met PT Problem 3 PT Problem #3 Impaired Range of Motion PT Goal 1 Goal / Goal Update 1. Patient to demonstrate an increase of cervical ext AROM to 40 degrees to improve the ability to drink from a cup. (04/08/25 progressing, 30 degrees ) 2. Patient to demonstrate an increase of cervical rotation Chi AROM to >=40 degrees to improve safety with driving. (04/08/25 progressing 38deg L , 42 deg R MET) Target Visit 4 Progress Partially Met PT Problem 4 PT Problem #4 Impaired Strength PT Goal 1 Goal / Goal Update Patient to demonstrate Chi shoulder strength >=4/5 for improved functional stability required for ADLs. (04/08/25 Flexion; R: 4-/5 L: 4+/5 Abduction; R: 3+/5 L: 4+/5 Internal Rotation; R: 4/5 L: 4+/5 External Rotation; R: 4/5 L: 4+/5) Target Visit 4 Progress Partially Met PT Problem 5 PT Problem #5 Impaired Functional ADLs PT Goal 1 Goal / Goal Update The patient will have a 10 point improvement on the NDI for decreased handicap due to neck pain. ( 04/08/25 68% disability) Target Visit 4 Progress Partially Met
--- NOTE | 2025-04-08 09:48 | PTOPPROG ---
Assessment and note entered by Savanah Adhikari, PT Evaluation Information Assessment Status Progress Diagnosis s/p cervical arthrodesis ICD-10 Condition Codes (PT) Encounter for other orthopedic aftercare Z47.89 Subjective Information Pt reports doing better if she has been taking a muscle relaxer but it makes her drowsy and mainly takes it at night. She is trying to take Ibuprofen during the day, if she rests she is typically okay. If she tries to move her neck she gets the burning/searing pain down the medial border of her scapula. The other day she was just standing and had this pain happen. It is not all the time but when it occurs it is very intense. She denies the N/T and sharp pain down the arm that she had prior to surgery. She does think her shoulder and hands are getting stronger. Overall, since first starting therapy the pt reports feeling 20% improvement. Assessment PT Clinical Summary Patient's condition has made slight improvements in symptoms, cervical mobility, and strength. However, limitations are still present in pain reduction, cervical mobility, R shoulder strength, soft tissue restrictions, and postural deficits. Patient would benefit from continued skilled PT services to address the above listed impairments and facilitate a return to their PLOF. Plan of Care Interventions Electrical Stimulation,Gait Training,Hot Pack/Cold Pack,Manual Therapy,Neuro Re-education, Therapeutic Activities,Therapeutic Exercise PT Services Indicated Yes Treatment Frequency and 2x/wk for 10 sessions Duration These treatments will address the objective and functional deficits as defined above. The patient will be advanced safely and appropriately in order for the patient to progress towards his/her prior level of function. Additional exercises will be introduced and as well as a comprehensive home exercise program upon discharge, if needed, ?to ensure carryover of functional gains achieved in the clinic. This treatment plan has been reviewed and agreement upon by the patient.
--- NOTE | 2025-05-14 10:26 | PTOPDC ---
Assessment and note entered by Savanah Adhikari, PT Evaluation Information Assessment Status Discharge Diagnosis s/p cervical arthrodesis ICD-10 Condition Codes (PT) Encounter for other orthopedic aftercare Z47.89 Subjective Information Pt reports her pain overall has improved. she denies radical symptoms but continues to have upper trap and medial scapular border. She doesn't think it is related to her neck surgery and thinks it is more from her lower back. She thinks the surgery resolved most of her issues and is pleased with her progress in PT. She thinks she has more ROM and flexibility in her neck and shoulders. She ambrose snot think she will ever do heavy lifting again due to her age. Overall for the reasons she was sent here she thinks she is improved by 90%. She is wanting to try and manage her symptoms on her own for a while. Reported Pain Level Pain Score 2,2: Self Report Additional Pain Score Comments medial scapular border pain, no neck pain Assessment PT Clinical Summary Patient's condition has improved overall as evidenced by advancements in symptoms, mobility, strength, and overall tolerance to ADLs. Pt has met 4/6 therapy goals and is pleased with progress made towards the remaining goals. Lack of progress toward FLR and pain attributed to medial scapular border and UT tightness versus neck pain. Patient to DC from PT this date and continue with updated HEP as instructed. Pt to contact PT or PCP if questions or concerns arise. Plan of Care PT Services Indicated Yes
== END 2025-05-14 11:28 | disposition home or self-care (01) ==
LOC: ANHGOSHPT 10:00
PROVIDERS: PCP Family Medicine
DX: Z98.1 Arthrodesis status (principal)
CPT/HCPCS: 97110; 97112; 97140; 97161; 97530